=== PATIENT | male | born 1995 | race American Indian/Alaskan Native ===

== ENCOUNTER 2016-12-23 06:01 | Inpatient (IN) | payer MEDICAID ==
[2016-12-23 06:58] LABS: Basophils % (Auto) 0.3 % (0.0-1.8); Eosinophils % (Auto) 5.5 % (0.0-4.3); Hematocrit 42.7 % (35.5-45.6); Hemoglobin 14.2 gm/dl (11.8-15.2); Mean Corpuscular HGB Conc 33 % (32-34); Mean Corpuscular Hemoglobin 29 pg (28-32); Mean Corpuscular Volume 87 fl (84-94); Platelet Count 170 K/mm3 (140-440); Red Blood Count 4.93 M/mm3 (3.65-5.03); Red Cell Distribution Width 13.8 % (13.2-15.2); White Blood Count 6.9 K/mm3 (4.5-11.0)
[2016-12-23 07:14] LABS: Anion Gap 19 mmol/L; Blood Urea Nitrogen 18 mg/dL (9-20); Calcium 8.9 mg/dL (8.4-10.2); Carbon Dioxide 26 mmol/L (22-30); Chloride 97.7 mmol/L (98-107); Glucose 96 mg/dL (75-100); Potassium 3.9 mmol/L (3.6-5.0); Sodium 139 mmol/L (137-145)
--- NOTE | 2016-12-23 09:52 | Emergency Department Report ---
HPI - General Chief Complaint: Chest Pain Time Seen by Provider: 12/23/16 09:29 - HPI HPI: Room 4 The patient is a 21-year-old male presenting with a chief complaint of chest pain. The patient states approximately one week ago began to feel "sick" which includes dizziness nausea vomiting and "seen spots" in his visual field. The patient states the next day he awakened diaphoretic and noticed his appetite was decreased. Patient admits episodes of nausea and vomiting with a very small amount of blood. 2 days ago the patient admits to subjective fever that has persisted throughout yesterday. This morning the patient awakened he noticed a sharp chest pain and a cough that felt as though this heart was "squeezing." The patient admits to fatigue shortness of breath and dyspnea on exertion with 10 feet. The patient states he ran out of his medication ports the end of October 2016. 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 pacemaker replaced by Dr. Bennett at [facility] in 2011 - Family History Family history: no significant - Social History Smoking Status: Never Smoker Substance Use Type: Marijuana - Medications Home Medications: Home Medications Medication Instructions Recorded Confirmed Last Taken Type Sotalol HCl [Sotalol] 80 mg PO BID #60 tablet 07/27/16 Unknown Rx ED Review of Systems ROS: Stated complaint: CHEST PAIN Other details as noted in HPI Comment: All other systems reviewed and negative Constitutional: fever (subjective). denies: chills Eyes: vision change. denies: eye pain, eye discharge ENT: denies: ear pain, throat pain Respiratory: cough, shortness of breath, SOB with exertion Cardiovascular: chest pain, dyspnea on exertion Endocrine: no symptoms reported Gastrointestinal: nausea, vomiting, hematemesis Genitourinary: denies: urgency, dysuria Musculoskeletal: denies: back pain, joint swelling, arthralgia Skin: denies: rash, lesions Neurological: denies: headache, weakness, paresthesias Psychiatric: denies: anxiety, depression Hematological/Lymphatic: denies: easy bleeding, easy bruising Physical Exam - Physical Exam Vital Signs: Vital Signs 12/23/16 06:17 Temperature 97.6 F Pulse Rate 70 Respiratory 20 Rate Blood Pressure 117/79 O2 Sat by Pulse 100 Oximetry Physical Exam: GENERAL: The patient is well-developed well-nourished male lying on stretcher not appear to be in acute distress. [] HEENT: Normocephalic. Atraumatic. Extraocular motions are intact. Patient has moist mucous membranes. NECK: Supple. Trachea midline CHEST/LUNGS: Clear to auscultation. There is no respiratory distress noted. HEART/CARDIOVASCULAR: Regular. There is no tachycardia. There is no gallop rub or murmur. ABDOMEN: Abdomen is soft, nontender. Patient has normal bowel sounds. There is no abdominal distention. SKIN: There is no rash. There is no edema. There is no diaphoresis. NEURO: The patient is awake, alert, and oriented. The patient is cooperative. The patient has normal speech MUSCULOSKELETAL: There is no evidence of acute injury. ED Course Vital Signs 12/23/16 06:17 Temperature 97.6 F Pulse Rate 70 Respiratory 20 Rate Blood Pressure 117/79 O2 Sat by Pulse 100 Oximetry ED Medical Decision Making - Lab Data Result diagrams: 12/23/16 06:35 12/23/16 06:35 Laboratory Tests 12/23/16 12/23/16 12/23/16 06:35 06:35 09:15 WBC 6.9 RBC 4.93 Hgb 14.2 Hct 42.7 MCV 87 MCH 29 MCHC 33 RDW 13.8 Plt Count 170 Lymph % (Auto) 14.3 Gentry % (Auto) 10.6 H Eos % (Auto) 5.5 H Baso % (Auto) 0.3 Lymph # 1.0 L Gentry # 0.7 Eos # 0.4 Baso # 0.0 Seg Neutrophils % 69.3 Seg Neutrophils # 4.8 Sodium 139 Potassium 3.9 Chloride 97.7 L Carbon Dioxide 26 Anion Gap 19 BUN 18 Creatinine 0.8 Estimated GFR > 60 BUN/Creatinine Ratio 22.50 Glucose 96 Calcium 8.9 Troponin T < 0.010 < 0.010 - EKG Data -: EKG Interpreted by Me Rate: normal - EKG Data Interpretation: unchanged when compared t (07/27/2016), other (atrial pacemaker) - Radiology Data Radiology results: image reviewed (chest x-ray) interpreted by me: Chest x-ray-no focal infiltrates, no pneumothorax. Pacemaker in place - Differential Diagnosis ACS, dysrhythmia, pneumonia, pericarditis, CHF exacerbation Critical care attestation.: If time is entered above; I have spent that time in minutes in the direct care of this critically ill patient, excluding procedure time. ED Disposition Clinical Impression: History of cardiac anomaly, Shortness of breath, Chest pain, History of sick sinus syndrome, Chronic systolic heart failure Disposition: OP ADMITTED IP TO THIS HOSP Is pt being admited?: Yes Does the pt Need Aspirin: Yes Condition: Fair Instructions: Chest Pain (ED) Referrals: PRIMARY CARE, [Primary Care Provider] - 3-5 Days Time of Disposition: 10:14 (hospitalist paged)
--- NOTE | 2016-12-23 10:16 | XRay Report ---
PORTABLE CHEST INDICATION: Chest pain. COMPARISON: 07/23/2016 FINDINGS: Portable, frontal chest radiograph demonstrates stable cardiomediastinal silhouette. No pleural effusions or CHF, though lung markings centrally somewhat more prominent. Left-sided pacemaker again noted with dual-chamber leads, though another leads projecting near the left fourth rib again appearing discontinuous/interrupted. Intact bones. CONCLUSION: Slight pulmonary vascular congestion centrally questioned versus technical with few other findings, as above. Please correlate. Thank you for the opportunity to participate in this patient's care.
--- NOTE | 2016-12-23 10:53 | Admit Criteria Form ---
Admission Criteria Documentation: CARDIOLOGY GRG Clinical Indications for Admission to Inpatient Care ( Place 'X' for any and all applicable criteria): Hospital admission is needed for appropriate care of the patient because of ANY ONE of the following (1): [ ] I. Hemodynamic instability as indicated by ALL of the following (1)(2)(3) (4)(5) [ ]a) Vital signs or other findings not as expected for chronic patient condition or baseline [ ]b) Instability indicated by ANY ONE of the following: [ ]i) Hypotension [ ]ii) Symptomatic Tachycardia unresponsive to treatment ( e.g., analgesia, fluids, sedation as indicated) [ ]iii) Inadequate perfusion indicated by ANY ONE of the following: [ ] 1) Lactic acidosis (> 2 mmol/L) [ ] 2) New abnormal capillary refill (> 3 seconds) [ ] 3) Reduced urine output [ ] 4) New altered mental status [ ]iv) Orthostatic vital sign changes unresponsive to treatment (e.g., fluids) [ ]v) IV inotropic or vasopressor medication required to maintain adequate blood pressure or perfusion [ ] II. Severe heart failure as indicated by ANY ONE of the following(17)(18) [ ]a) Respiratory distress [ ]b) Hypotension [ ]c) Anasarca (refractory to outpatient therapy) [ ]d) Cardiac arrhythmias of immediate concern [ ]e) Myocardial ischemia [ ] III. Cardiac arrhythmias or findings of immediate concern indicated by ANY ONE of the following (19)(20): [ ] a) Heart rhythms that are inherently dangerous or unstable indicated by ANY ONE of the following (21)(22)(23): [ ] i) Resuscitated ventricular fibrillation or cardiac arrest [ ] ii) Ventricular escape rhythm [ ] iii) Sustained ventricular tachycardia (30 seconds or more of ventricular rhythm at greater than 100 beats per minute) [ ] iv) Nonsustained ventricular tachycardia and ANY ONE of the following: [ ] 1) Suspected cardiac ischemia as cause or consequence of ventricular tachycardia [ ] 2) In setting of acute myocarditis [ ] b) Unstable cardiac conduction defects indicated by ANY ONE of the following(23)(24)(25) [ ] i) Type II second-degree atrioventricular block [ ]ii) Third-degree atrioventricular block [ ]iii) New-onset left bundle branch block with suspected myocardial ischemia [ ]c) Any heart rhythm and ANY ONE of the following (21)(22)(26)(27) (28) [ ] i) Continuous long-term ECG monitoring needed (e.g., initiation of drug requiring monitoring for more than 24 hours) [ ] ii) Patient has automatic implanted cardioverter defibrillator that is repeatedly firing, malfunctioning, or in need of immediate adjustment of settings beyond the scope of ambulatory or observation care [ ]d) Heart rhythms of concern due to ANY ONE of the following: [ ] i) Hypotension [ ] ii) Respiratory distress [ ] iii) Association with other significant symptoms (e.g., bradycardia with syncope or ongoing dizziness, supraventricular tachycardia with chest pain (14)(15)(17) [ ] IV. Monitoring for cardiac contusion beyond the scope of observation care needed [A](30)(31)(32) [ ] V. Surgical or device complication (e.g., valve replacement complication , pacemaker dysfunction) (35)(41)(44)(45)(46) [ ] . Inpatient palliative care needed. [B](49) Also use Inpatient Palliative Care Criteria [ ] VII. Nonbacterial thrombotic (marantic) endocarditis (36)(43)(47)(48) [ X] VIII. Cardiology condition, symptom, or finding for which emergency and observation care has failed or are not considered appropriate. [ ] IX. Acute valvular disease requiring inpatient as indicated by ANY ONE of the following (41) [ ]a) Acute valvular regurgitation (42) [ ]b) Noninfectious valvulitis (43) [ ]c) Obstructive valve thrombosis [ ]d) Paravalvular leak [ ]e) Other significant valvular disorder remaining after emergency or observation level of care (as appropriate) [ ]X. Pericardial disease requiring inpatient treatment as indicated by ANY ONE of the following (33)(34)(35)(36)(37) [ ]a) Suspected tamponade (38)(39)(40) [ ]b) Hemopericardium [ ]c) Other significant pericardial disorder remaining after emergency or observation level of care (as appropriate) [ ] XI. Cardiac ischemia beyond scope of emergency and observation care. [ ] XII. Hypertension requiring inpatient treatment as indicated by ANY ONE of the following (6)(7)(8) [ ]a) SBP greater than 220 mm Hg or DBP greater than 120 mmHg despite treatment [ ]b) SBP greater than 140 mm Hg or DBP greater than 100 mm Hg with evidence of acute end organ damage as indicated by ANY ONE of the following [ ] i) Altered mental status [ ] ii) Acute renal failure as indicated by new onset of ANY ONE of the following (9)(10)(11)(12)(13) [ ]1) 3-fold rise in serum creatinine from baseline [ ]2) Serum creatinine greater than 4 mg/dL ( 354 micromoles/L) with acute rise greater than 0.5 mg/dL (44.2 micromoles/L) [ ]3) Reduction of more than 75% in estimated glomerular filtration rate from baseline [ ]4) Estimated glomerular filtration rate less than 35 mL/min/1.73m2 (0.59 mL/sec/1.73m2) in child up to 18 years of age [ ]5) Cessation of urine output indicated by ALL of the following [ ]A. Adequate volume status [ ]B. Inadequate urine output as indicated by ANY ONE of the following [ ]a. Urine output less than 0.3 mL/kg/hr for 24 hours [ ]b. Anuria (urine output less than 0.1 mL/kg/hr) for 12 hours [ ] iii) Aortic dissection [ ] iv) Myocardial Ischemia [ ] v) Left ventricular heart failure [ ]vi) Retinal Hemorrhage [ ]vii) Other significant finding [ ]c) Hypertension in child requiring inpatient treatment as indicated by ALL of the following(14)(15)(16) [ ] i) Outpatient treatment not effective, not available, or not appropriate [ ]ii) SBP or DBP greater than 95th percentile for age [ ]iii) Evidence of acute end organ damage as indicated by ANY ONE of the following [ ]1) Altered mental status [ ]2) Acute renal failure as indicated by new onset of ANY ONE of the following(9)(10)(11)(12)(13) [ ]A. 3-fold rise in serum creatinine from baseline [ ]B. Serum creatinine greater than 4 mg/dL (354 micromoles/L) with acute rise greater than 0.5 mg/dL (44.2 micromoles/L) [ ]C. Reduction of more than 75% in estimated glomerular filtration rate from baseline [ ]D. Estimated glomerular filtration rate less than 35 mL/min/1.73m2 (0.59 mL/sec/1.73m2) in child up to 18 years of age [ ]E. Cessation of urine output indicated by ALL of the following [ ]a. Adequate volume status [ ]b. Inadequate urine output as indicated by ANY ONE of the following [ ]i) Urine output less than 0.3 mL/kg/hr for 24 hours [ ]ii) Anuria ( urine output less than 0.1 mL/kg/hr) for 12 hours [ ]3) Severe headache [ ]4) Visual disturbance [ ]5) Retinal hemorrhage [ ]6) Other significant finding [ ]XIII. Complications of transplanted heart indicated by ANY ONE of the following(61): [ ]a) Acute graft rejection requiring inpatient management (eg, intravenous immunosuppression)(62)(63) [ ]b) Acute graft heart failure indicated by ANY ONE of the following(64): [ ]i) Hemodynamic instability [ ]ii) Cardiac arrhythmias of immediate concern [ ]iii) Pulmonary edema that is very severe (eg, mechanical ventilation needed, imminent or likely, need for 100% oxygen to keep oxygen saturation above 90%) [ ]iv) Pulmonary edema that is persistent as indicated by ALL of the following: [ ]1) New need for oxygen therapy to keep oxygen saturation above 90% (or increased FiO2 need from baseline) [ ]2) Has not improved sufficiently with emergency department or observation care IV diuretics or other heart failure treatments[E] [ ]v) Altered mental status that is severe or persistent [ ]vi) Increased creatinine (new on laboratory test) with reduction of more than 50% in estimated glomerular filtration rate from baseline [ ]vii) Progressively (ongoing) rising creatinine (known from past laboratory test) with reduction of more than 25% in estimated glomerular filtration rate from baseline [ ]viii) Acute renal failure [ ]ix) Acute peripheral ischemia (eg, examination shows pulseless, cool, mottled, or cyanotic extremity) [ ]x) Pulmonary artery catheter monitoring needed [ ]xi) Other sign or symptom of heart failure requiring inpatient treatment (ie, too severe or not responsive to outpatient and observation care treatment) [ ]c) Infection requiring inpatient management (eg, Hemodynamic instability, need for intravenous antimicrobial treatment)(66)(67)(68)(69)(70) [ ]d) Cardiac allograft vasculopathy requiring inpatient management ( eg evidence of cardiac ischemia)(71) [ ]e) Other complication of transplanted heart (eg, stroke, severe pulmonary hypertension, severe valvular dysfunction) requiring inpatient management(72) The original [facility] [employer] content created by [facility] has been revised. The portions of the content which have been revised are identified through the use of italic text or in bold, and [facility] has neither reviewed nor approved the modified material. All other unmodified content is copyright [facility] [employer]. Please see references footnoted in the original [facility] [employer] edition 2016 Admission Criteria Met: Yes
--- NOTE | 2016-12-23 12:25 | History and Physical Report ---
History of Present Illness Date of examination: 12/23/16 Date of admission: 12/23/16 10:16 History of present illness: The patient is a 21-year-old male presenting with a chief complaint of chest pain. The patient states approximately one week ago began to feel "sick" which includes dizziness nausea vomiting and "seen spots" in his visual field. The patient states the next day he awakened diaphoretic and noticed his appetite was decreased. Patient admits episodes of nausea and vomiting with a very small amount of blood. 2 days ago the patient admits to subjective fever that has persisted throughout yesterday. This morning the patient awakened he noticed a sharp chest pain and a cough that felt as though this heart was "squeezing." The patient admits to fatigue shortness of breath and dyspnea on exertion with 10 feet. The patient states he ran out of his medication ports the end of October 2016. Past History Past Medical History: atrial fib, other (ASD) Medications and Allergies Allergies Allergy/AdvReac Type Severity Reaction Status Date / Time No Known Allergies Allergy Verified 10/29/13 00:20 Home Medications Medication Instructions Recorded Confirmed Last Taken Type Sotalol HCl [Sotalol] 80 mg PO BID #60 tablet 07/27/16 12/23/16 Unknown Rx Review of Systems Cardiovascular: chest pain, shortness of breath Exam - Constitutional Vitals: Temp Pulse Resp BP Pulse Ox 98.5 F 67 16 111/77 98 12/23/16 09:55 12/23/16 09:55 12/23/16 09:55 12/23/16 09:55 12/23/16 09:55 General appearance: Present: no acute distress - EENT Eyes: Present: PERRL, EOM intact ENT: hearing intact, clear oral mucosa - Neck Neck: Present: supple, normal ROM - Respiratory Respiratory effort: normal Respiratory: bilateral: CTA - Cardiovascular Rhythm: regular Heart Sounds: Present: S1 & S2 - Abdominal General gastrointestinal: Present: soft, non-tender, non-distended, normal bowel sounds - Musculoskeletal Musculoskeletal: strength equal bilaterally - Psychiatric Psychiatric: appropriate mood/affect, intact judgment & insight - Neurologic Neurologic: CNII-XII intact, moves all extremities Results - Labs CBC & Chem 7: 12/23/16 06:35 12/23/16 06:35 Labs: Laboratory Last Values WBC 6.9 K/mm3 (4.5-11.0) 12/23/16 06:35 RBC 4.93 M/mm3 (3.65-5.03) 12/23/16 06:35 Hgb 14.2 gm/dl (11.8-15.2) 12/23/16 06:35 Hct 42.7 % (35.5-45.6) 12/23/16 06:35 MCV 87 fl (84-94) 12/23/16 06:35 MCH 29 pg (28-32) 12/23/16 06:35 MCHC 33 % (32-34) 12/23/16 06:35 RDW 13.8 % (13.2-15.2) 12/23/16 06:35 Plt Count 170 K/mm3 (140-440) 12/23/16 06:35 Lymph % (Auto) 14.3 % (13.4-35.0) 12/23/16 06:35 Irion % (Auto) 10.6 % (0.0-7.3) H 12/23/16 06:35 Eos % (Auto) 5.5 % (0.0-4.3) H 12/23/16 06:35 Baso % (Auto) 0.3 % (0.0-1.8) 12/23/16 06:35 Lymph # 1.0 K/mm3 (1.2-5.4) L 12/23/16 06:35 Irion # 0.7 K/mm3 (0.0-0.8) 12/23/16 06:35 Eos # 0.4 K/mm3 (0.0-0.4) 12/23/16 06:35 Baso # 0.0 K/mm3 (0.0-0.1) 12/23/16 06:35 Seg Neutrophils % 69.3 % (40.0-70.0) 12/23/16 06:35 Seg Neutrophils # 4.8 K/mm3 (1.8-7.7) 12/23/16 06:35 Sodium 139 mmol/L (137-145) 12/23/16 06:35 Potassium 3.9 mmol/L (3.6-5.0) 12/23/16 06:35 Chloride 97.7 mmol/L (98-107) L 12/23/16 06:35 Carbon Dioxide 26 mmol/L (22-30) 12/23/16 06:35 Anion Gap 19 mmol/L 12/23/16 06:35 BUN 18 mg/dL (9-20) 12/23/16 06:35 Creatinine 0.8 mg/dL (0.8-1.5) 12/23/16 06:35 Estimated GFR > 60 ml/min 12/23/16 06:35 BUN/Creatinine Ratio 22.50 % 12/23/16 06:35 Glucose 96 mg/dL (75-100) 12/23/16 06:35 Calcium 8.9 mg/dL (8.4-10.2) 12/23/16 06:35 Troponin T < 0.010 ng/mL (0.00-0.029) 12/23/16 09:15 Assessment and Plan - Patient Problems (1) History of atrial septal defect Current Visit: Yes Status: Acute Plan to address problem: Patient has an extensive cardiac history with repair of atrial septal defect. We'll get cardiology evaluation follow troponins. 2-D echo (2) History of atrial flutter Current Visit: Yes Status: Acute Plan to address problem: Patient currently in sinus rhythm (3) Chest pain Current Visit: Yes Status: Acute Qualifiers: Chest pain type: C Plan to address problem: Will get full cardiac workup admit patient to telemetry. Troponin. Echo. Cardiology consult
[2016-12-23] MEDS: HALFPRIN EC PO SCH (13:37)
[2016-12-23] MEDS: BETAPACE PO SCH ×2 (13:37→21:11)
[2016-12-23] MEDS: NACL 0.9% 1000 ML 1,000 ML IV SCH (13:39)
--- NOTE | 2016-12-23 15:07 | Consultation ---
History of Present Illness Consult date: 12/23/16 Consult reason: chest pain, other (ASD) History of present illness: Patient is a 21yr old male who has a history of partial anomalous venous return , ASD and PDA s/p repair at age 3 in [place]. At age 5, he required a PPM ( medtronic adapta) for sick sinus syndrome (generator exchanged 2010). He has a history of atrial flutter and atrial tachycardia, noncompliant with sotalol and eliquis therapy. He has a history of a four-chamber cardiomyopathy, with left ventricular ejection fraction 30%. He also has a history noncompliance with outpatient cardiac follow ups. The patient is in the hospital at this time with symptoms of productive cough, diaphoresis and fever. Following multiple coughing episodes, he also developed atypical, musculoskeletal type chest pain. A 12-lead EKG shows an atrial paced rhythm. Underlying sinus rhythm. Cardiac consultation was requested for chest pain assessment. Past History Past Medical History: atrial fib, other (ASD) Medications and Allergies Allergies Allergy/AdvReac Type Severity Reaction Status Date / Time No Known Allergies Allergy Verified 10/29/13 00:20 Home Medications Medication Instructions Recorded Confirmed Last Taken Type Sotalol HCl [Sotalol] 80 mg PO BID #60 tablet 07/27/16 12/23/16 Unknown Rx Active Meds: Active Medications Aspirin (Halfprin Ec) 81 mg PO QDAY [facility] Last Admin: 12/23/16 13:37 Dose: 81 mg Sodium Chloride (Nacl 0.9% 1000 Ml) 1,000 mls @ 100 mls/hr IV DIRECT [facility] Last Admin: 12/23/16 13:39 Dose: 100 mls/hr Sotalol HCl (Betapace) 80 mg PO BID [facility] Last Admin: 12/23/16 13:37 Dose: 80 mg Physical Examination Vital Signs Temp Pulse Resp BP Pulse Ox 97.6 F 70 20 117/79 100 12/23/16 06:17 12/23/16 06:17 12/23/16 06:17 12/23/16 06:17 12/23/16 06:17 General appearance: no acute distress HEENT: Positive: PERRL Neck: Positive: trachea midline Cardiac: Positive: Reg Rate and Rhythm Lungs: Positive: Decreased Breath Sounds Neuro: Positive: Grossly Intact Extremities: Absent: edema Results 12/23/16 06:35 12/23/16 06:35 Assessment and Plan Atypical, musculoskeletal type chest pain Paroxysmal Atrial tachycardia/flutter sotalol resumed for suppression 4 chamber Dilated Cardiomyopathy EF 35-40% on echo 06/2016 SSS s/p PPM (generator exchange 2010) Hx of partial anomalous venous return, ASD and PDA s/p repair at age 3 in [place] Hx of pulmonary embolus Non compliance with meds and outpatient follow ups
[2016-12-24] MEDS: NACL 0.9% 1000 ML 1,000 ML IV SCH (02:25)
[2016-12-24 03:46] LABS: Basophils % (Auto) 0.5 % (0.0-1.8); Eosinophils % (Auto) 5.9 % (0.0-4.3); Hemoglobin 13.8 gm/dl (11.8-15.2); Mean Corpuscular HGB Conc 33 % (32-34); Mean Corpuscular Hemoglobin 29 pg (28-32); Mean Corpuscular Volume 87 fl (84-94); Platelet Count 190 K/mm3 (140-440); Red Blood Count 4.81 M/mm3 (3.65-5.03); Red Cell Distribution Width 13.5 % (13.2-15.2); White Blood Count 7.2 K/mm3 (4.5-11.0)
[2016-12-24 04:04] LABS: Alanine Aminotransferase 17 units/L (7-56); Albumin 4.3 g/dL (3.9-5); Albumin/Globulin Ratio 1.3 %; Alkaline Phosphatase 102 units/L (35-129); Anion Gap 18 mmol/L; BUN/Creatinine Ratio 14.44; Bilirubin,Total 0.8 mg/dL (0.1-1.2); Blood Urea Nitrogen 13 mg/dL (9-20); Calcium 9.1 mg/dL (8.4-10.2); Carbon Dioxide 24 mmol/L (22-30); Glucose 106 mg/dL (75-100); Potassium 4.4 mmol/L (3.6-5.0); Sodium 141 mmol/L (137-145); Total Protein 7.5 g/dL (6.3-8.2)
--- NOTE | 2016-12-24 10:56 | Progress Note ---
Assessment and Plan Assessment and plan: 1. Atypical, musculoskeletal type chest pain. Continue supportive care. 2. Paroxysmal Atrial tachycardia/flutter. Sotalol resumed for suppression per cardiology 3. 4 chamber Dilated Cardiomyopathy. EF 35-40% on echo 06/2016. Echo today showing a small mobile echogenic density on the pacemaker leads 4. SSS s/p PPM (generator exchange 2010) 5. Hx of partial anomalous venous return, ASD and PDA s/p repair at age 3 in [place] 6. Hx of pulmonary embolus 7. Medical Non compliance. 8. SIRS/fever symptom complex--rule out endocarditis. Await blood cultures. History Interval history: Patient is a 21yr old male who has a history of partial anomalous venous return , ASD and PDA s/p repair at age 3 in [place]. At age 5, he required a PPM ( medtronic adapta) for sick sinus syndrome (generator exchanged 2010). He has a history of atrial flutter and atrial tachycardia, noncompliant with sotalol and eliquis therapy. He has a history of a four-chamber cardiomyopathy, with left ventricular ejection fraction 30%. He also has a history noncompliance with outpatient cardiac follow ups. The patient was admitted with symptoms of productive cough, diaphoresis and fever. Following multiple coughing episodes, he also developed atypical, musculoskeletal type chest pain. Patient currently denies any pain. Hospitalist Physical - Constitutional Vitals: Temp Pulse Resp BP Pulse Ox 97.7 F 73 18 119/81 100 12/24/16 04:00 12/24/16 04:00 12/24/16 04:00 12/24/16 04:00 12/24/16 09:51 General appearance: Present: no acute distress - EENT Eyes: Present: PERRL, EOM intact ENT: hearing intact, clear oral mucosa, dentition normal - Neck Neck: Present: supple, normal ROM - Respiratory Respiratory effort: normal Respiratory: bilateral: CTA - Cardiovascular Rhythm: regular Heart Sounds: Present: S1 & S2. Absent: gallop, rub - Extremities Extremities: no ischemia, No edema, Full ROM - Abdominal General gastrointestinal: soft, non-tender, non-distended, normal bowel sounds - Integumentary Integumentary: Present: clear, warm, dry - Neurologic Neurologic: CNII-XII intact, moves all extremities Results - Labs CBC & Chem 7: 12/24/16 03:15 12/24/16 03:15 Labs: Laboratory Last Values WBC 7.2 K/mm3 (4.5-11.0) 12/24/16 03:15 RBC 4.81 M/mm3 (3.65-5.03) 12/24/16 03:15 Hgb 13.8 gm/dl (11.8-15.2) 12/24/16 03:15 Hct 42.0 % (35.5-45.6) 12/24/16 03:15 MCV 87 fl (84-94) 12/24/16 03:15 MCH 29 pg (28-32) 12/24/16 03:15 MCHC 33 % (32-34) 12/24/16 03:15 RDW 13.5 % (13.2-15.2) 12/24/16 03:15 Plt Count 190 K/mm3 (140-440) 12/24/16 03:15 Lymph % (Auto) 27.0 % (13.4-35.0) 12/24/16 03:15 [place] % (Auto) 12.3 % (0.0-7.3) H 12/24/16 03:15 Eos % (Auto) 5.9 % (0.0-4.3) H 12/24/16 03:15 Baso % (Auto) 0.5 % (0.0-1.8) 12/24/16 03:15 Lymph # 2.0 K/mm3 (1.2-5.4) 12/24/16 03:15 [place] # 0.9 K/mm3 (0.0-0.8) H 12/24/16 03:15 Eos # 0.4 K/mm3 (0.0-0.4) 12/24/16 03:15 Baso # 0.0 K/mm3 (0.0-0.1) 12/24/16 03:15 Seg Neutrophils % 54.3 % (40.0-70.0) 12/24/16 03:15 Seg Neutrophils # 3.9 K/mm3 (1.8-7.7) 12/24/16 03:15 Sodium 141 mmol/L (137-145) 12/24/16 03:15 Potassium 4.4 mmol/L (3.6-5.0) 12/24/16 03:15 Chloride 103.0 mmol/L (98-107) 12/24/16 03:15 Carbon Dioxide 24 mmol/L (22-30) 12/24/16 03:15 Anion Gap 18 mmol/L 12/24/16 03:15 BUN 13 mg/dL (9-20) 12/24/16 03:15 Creatinine 0.9 mg/dL (0.8-1.5) 12/24/16 03:15 Estimated GFR > 60 ml/min 12/24/16 03:15 BUN/Creatinine Ratio 14.44 % 12/24/16 03:15 Glucose 106 mg/dL (75-100) H 12/24/16 03:15 Calcium 9.1 mg/dL (8.4-10.2) 12/24/16 03:15 Total Bilirubin 0.8 mg/dL (0.1-1.2) 12/24/16 03:15 AST 19 units/L (5-40) 12/24/16 03:15 ALT 17 units/L (7-56) 12/24/16 03:15 Alkaline Phosphatase 102 units/L (35-129) 12/24/16 03:15 Troponin T < 0.010 ng/mL (0.00-0.029) 12/23/16 17:01 Total Protein 7.5 g/dL (6.3-8.2) 12/24/16 03:15 Albumin 4.3 g/dL (3.9-5) 12/24/16 03:15 Albumin/Globulin Ratio 1.3 % 12/24/16 03:15
[2016-12-24] MEDS: HALFPRIN EC PO SCH (11:13)
[2016-12-24] MEDS: BETAPACE PO SCH ×2 (11:13→21:55)
--- NOTE | 2016-12-24 11:55 | Progress Note ---
Assessment and Plan Atypical, musculoskeletal type chest pain Paroxysmal Atrial tachycardia/flutter sotalol resumed for suppression H/O Dilated Cardiomyopathy EF 45-50% on repeat echo SSS s/p PPM (generator exchange 2011) Subjective fevers and mobile density noted on PPM lead (unclear if thrombin sheath or vegetation) Hx of partial anomalous venous return, ASD and PDA s/p repair at age 3 in [place] Hx of pulmonary embolus Non compliance with meds and outpatient follow ups Recommend: F/U on blood cultures - no objective signs of systemic infection thus far. Subjective Date of service: 12/24/16 Interval history: No acute events. He feels well. Objective Vital Signs Temp Pulse Pulse Resp BP BP Pulse Ox 12/24/16 09:51 100 12/24/16 04:00 97.7 F 73 18 119/81 98 12/24/16 00:00 98.1 F 58 L 18 112/73 97 12/23/16 21:09 97 12/23/16 20:52 60 12/23/16 20:24 98.1 F 58 L 18 138/93 100 12/23/16 20:08 20 12/23/16 15:30 98.2 F 57 L 20 112/70 98 12/23/16 14:03 97.5 F L 62 20 112/67 98 12/23/16 12:52 67 12/23/16 12:00 76 16 123/74 97 - Physical Examination HEENT: Positive: PERRL Neck: Positive: trachea midline Cardiac: Positive: Reg Rate and Rhythm, Systolic Murmur Lungs: Positive: clear to auscultation Neuro: Positive: Grossly Intact Abdomen: Positive: Soft, Active Bowel Sounds Extremities: Absent: edema - Labs and Meds Cardiac Enzymes 12/24/16 Range/Units 03:15 AST 19 (5-40) units/L CBC 12/24/16 Range/Units 03:15 WBC 7.2 (4.5-11.0) K/mm3 RBC 4.81 (3.65-5.03) M/mm3 Hgb 13.8 (11.8-15.2) gm/dl Hct 42.0 (35.5-45.6) % Plt Count 190 (140-440) K/mm3 Lymph # 2.0 (1.2-5.4) K/mm3 [place] # 0.9 H (0.0-0.8) K/mm3 Eos # 0.4 (0.0-0.4) K/mm3 Baso # 0.0 (0.0-0.1) K/mm3 Comprehensive Metabolic Panel 12/24/16 Range/Units 03:15 Sodium 141 (137-145) mmol/L Potassium 4.4 (3.6-5.0) mmol/L Chloride 103.0 (98-107) mmol/L Carbon Dioxide 24 (22-30) mmol/L BUN 13 (9-20) mg/dL Creatinine 0.9 (0.8-1.5) mg/dL Glucose 106 H (75-100) mg/dL Calcium 9.1 (8.4-10.2) mg/dL AST 19 (5-40) units/L ALT 17 (7-56) units/L Alkaline Phosphatase 102 (35-129) units/L Total Protein 7.5 (6.3-8.2) g/dL Albumin 4.3 (3.9-5) g/dL
[2016-12-25] MEDS: NACL 0.9% 1000 ML 1,000 ML IV SCH ×3 (02:19→21:57)
[2016-12-25] MEDS: BETAPACE PO SCH ×2 (11:13→21:57)
[2016-12-25] MEDS: HALFPRIN EC PO SCH (11:13)
--- NOTE | 2016-12-25 12:18 | Progress Note ---
Assessment and Plan Atypical, musculoskeletal type chest pain Paroxysmal Atrial tachycardia/flutter sotalol resumed for suppression H/O Dilated Cardiomyopathy EF 45-50% on repeat echo SSS s/p PPM (generator exchange 2011) Subjective fevers and mobile density noted on PPM lead (unclear if thrombin sheath or vegetation) Hx of partial anomalous venous return, ASD and PDA s/p repair at age 3 in [place] Hx of pulmonary embolus Non compliance with meds and outpatient follow ups Recommend: F/U on blood cultures - no objective signs of systemic infection thus far. Subjective Date of service: 12/25/16 Interval history: No acute events. He feels well. Objective Vital Signs Temp Pulse Pulse Resp BP BP Pulse Ox 12/25/16 11:17 20 12/25/16 10:46 50 L 12/25/16 07:20 97.8 F 52 L 20 99/55 97 12/25/16 04:00 98.3 F 69 18 98/53 100 12/25/16 00:00 98.1 F 72 18 109/74 98 12/24/16 21:55 121/71 12/24/16 21:06 51 L 12/24/16 20:00 98.4 F 63 18 121/71 97 12/24/16 18:00 98.2 F 73 20 116/66 99 12/24/16 15:22 98.0 F 71 20 114/61 100 - Physical Examination HEENT: Positive: PERRL Neck: Positive: trachea midline Lungs: Positive: clear to auscultation Neuro: Positive: Grossly Intact Abdomen: Positive: Soft, Active Bowel Sounds Extremities: Absent: edema
--- NOTE | 2016-12-25 13:38 | Progress Note ---
Assessment and Plan Assessment and plan: 1. Atypical, musculoskeletal type chest pain. Continue supportive care. 2. Paroxysmal Atrial tachycardia/flutter. Sotalol resumed for suppression per cardiology 3. 4 chamber Dilated Cardiomyopathy. EF 35-40% on echo 06/2016. Echo today showing a small mobile echogenic density on the pacemaker leads 4. SSS s/p PPM (generator exchange 2010) 5. Hx of partial anomalous venous return, ASD and PDA s/p repair at age 3 in [place] 6. Hx of pulmonary embolus 7. Medical Non compliance. 8. SIRS/fever symptom complex--rule out endocarditis. Await blood cultures. 9. Sinusitis. Patient complaining of maxillary and frontal pressure/pain. Start by mouth antibiotics. History Interval history: Patient currently complaining of maxillary and frontal sinus pressure and pain. No other complaints. Hospitalist Physical - Constitutional Vitals: Temp Pulse Resp BP Pulse Ox 98.3 F 54 L 20 100/78 98 12/25/16 12:39 12/25/16 12:39 12/25/16 12:39 12/25/16 12:39 12/25/16 12:39 General appearance: Present: no acute distress - EENT Eyes: Present: PERRL, EOM intact ENT: hearing intact, clear oral mucosa, dentition normal, other (frontal and maxillary sinus pain to palpation) - Neck Neck: Present: supple, normal ROM - Respiratory Respiratory effort: normal Respiratory: bilateral: CTA - Cardiovascular Rhythm: regular Heart Sounds: Present: S1 & S2. Absent: gallop, rub - Extremities Extremities: no ischemia, No edema, Full ROM - Abdominal General gastrointestinal: soft, non-tender, non-distended, normal bowel sounds - Integumentary Integumentary: Present: clear, warm, dry - Neurologic Neurologic: CNII-XII intact, moves all extremities Results - Labs CBC & Chem 7: 12/24/16 03:15 12/24/16 03:15 Labs: Laboratory Last Values WBC 7.2 K/mm3 (4.5-11.0) 12/24/16 03:15 RBC 4.81 M/mm3 (3.65-5.03) 12/24/16 03:15 Hgb 13.8 gm/dl (11.8-15.2) 12/24/16 03:15 Hct 42.0 % (35.5-45.6) 12/24/16 03:15 MCV 87 fl (84-94) 12/24/16 03:15 MCH 29 pg (28-32) 12/24/16 03:15 MCHC 33 % (32-34) 12/24/16 03:15 RDW 13.5 % (13.2-15.2) 12/24/16 03:15 Plt Count 190 K/mm3 (140-440) 12/24/16 03:15 Lymph % (Auto) 27.0 % (13.4-35.0) 12/24/16 03:15 [place] % (Auto) 12.3 % (0.0-7.3) H 12/24/16 03:15 Eos % (Auto) 5.9 % (0.0-4.3) H 12/24/16 03:15 Baso % (Auto) 0.5 % (0.0-1.8) 12/24/16 03:15 Lymph # 2.0 K/mm3 (1.2-5.4) 12/24/16 03:15 [place] # 0.9 K/mm3 (0.0-0.8) H 12/24/16 03:15 Eos # 0.4 K/mm3 (0.0-0.4) 12/24/16 03:15 Baso # 0.0 K/mm3 (0.0-0.1) 12/24/16 03:15 Seg Neutrophils % 54.3 % (40.0-70.0) 12/24/16 03:15 Seg Neutrophils # 3.9 K/mm3 (1.8-7.7) 12/24/16 03:15 Sodium 141 mmol/L (137-145) 12/24/16 03:15 Potassium 4.4 mmol/L (3.6-5.0) 12/24/16 03:15 Chloride 103.0 mmol/L (98-107) 12/24/16 03:15 Carbon Dioxide 24 mmol/L (22-30) 12/24/16 03:15 Anion Gap 18 mmol/L 12/24/16 03:15 BUN 13 mg/dL (9-20) 12/24/16 03:15 Creatinine 0.9 mg/dL (0.8-1.5) 12/24/16 03:15 Estimated GFR > 60 ml/min 12/24/16 03:15 BUN/Creatinine Ratio 14.44 % 12/24/16 03:15 Glucose 106 mg/dL (75-100) H 12/24/16 03:15 Calcium 9.1 mg/dL (8.4-10.2) 12/24/16 03:15 Total Bilirubin 0.8 mg/dL (0.1-1.2) 12/24/16 03:15 AST 19 units/L (5-40) 12/24/16 03:15 ALT 17 units/L (7-56) 12/24/16 03:15 Alkaline Phosphatase 102 units/L (35-129) 12/24/16 03:15 Troponin T < 0.010 ng/mL (0.00-0.029) 12/23/16 17:01 Total Protein 7.5 g/dL (6.3-8.2) 12/24/16 03:15 Albumin 4.3 g/dL (3.9-5) 12/24/16 03:15 Albumin/Globulin Ratio 1.3 % 12/24/16 03:15
[2016-12-25] MEDS: BACTRIM DS PO SCH (21:57)
[2016-12-26] MEDS: NACL 0.9% 1000 ML 1,000 ML IV SCH (06:26)
--- NOTE | 2016-12-26 09:22 | Progress Note ---
Assessment and Plan Assessment and plan: 1. Atypical chest pain. Continue supportive care. 2. Paroxysmal Atrial tachycardia/flutter. Sotalol resumed for suppression per cardiology 3. 4 chamber Dilated Cardiomyopathy. EF 35-40% on echo 06/2016. Echo showing a small mobile echogenic density on the pacemaker leads. Pt. with subjective fevers and mobile density noted on PPM lead (unclear if thrombin sheath or vegetation) 4. SSS s/p PPM (generator exchange 2010) 5. Hx of partial anomalous venous return, ASD and PDA s/p repair at age 3 in [place] 6. Hx of pulmonary embolus 7. Medical Non compliance. 8. SIRS/fever symptom complex--rule out endocarditis. Await blood cultures, if negative consider d/c 9. Sinusitis. Patient complaining of maxillary and frontal pressure/pain. Bactrim by mouth started. History Interval history: No new issues overnight. Hospitalist Physical - Constitutional Vitals: Temp Pulse Resp BP Pulse Ox 98.7 F 81 20 120/80 96 12/26/16 08:11 12/26/16 08:11 12/26/16 08:11 12/26/16 08:11 12/26/16 08:11 General appearance: Present: no acute distress - EENT Eyes: Present: PERRL, EOM intact ENT: hearing intact, clear oral mucosa, dentition normal - Neck Neck: Present: supple, normal ROM - Respiratory Respiratory effort: normal Respiratory: bilateral: CTA - Cardiovascular Rhythm: regular Heart Sounds: Present: S1 & S2. Absent: gallop, rub - Extremities Extremities: no ischemia, No edema, Full ROM - Abdominal General gastrointestinal: soft, non-tender, non-distended, normal bowel sounds - Integumentary Integumentary: Present: clear, warm, dry - Neurologic Neurologic: CNII-XII intact, moves all extremities Results - Labs CBC & Chem 7: 12/24/16 03:15 12/24/16 03:15 Labs: Laboratory Last Values WBC 7.2 K/mm3 (4.5-11.0) 12/24/16 03:15 RBC 4.81 M/mm3 (3.65-5.03) 12/24/16 03:15 Hgb 13.8 gm/dl (11.8-15.2) 12/24/16 03:15 Hct 42.0 % (35.5-45.6) 12/24/16 03:15 MCV 87 fl (84-94) 12/24/16 03:15 MCH 29 pg (28-32) 12/24/16 03:15 MCHC 33 % (32-34) 12/24/16 03:15 RDW 13.5 % (13.2-15.2) 12/24/16 03:15 Plt Count 190 K/mm3 (140-440) 12/24/16 03:15 Lymph % (Auto) 27.0 % (13.4-35.0) 12/24/16 03:15 [place] % (Auto) 12.3 % (0.0-7.3) H 12/24/16 03:15 Eos % (Auto) 5.9 % (0.0-4.3) H 12/24/16 03:15 Baso % (Auto) 0.5 % (0.0-1.8) 12/24/16 03:15 Lymph # 2.0 K/mm3 (1.2-5.4) 12/24/16 03:15 [place] # 0.9 K/mm3 (0.0-0.8) H 12/24/16 03:15 Eos # 0.4 K/mm3 (0.0-0.4) 12/24/16 03:15 Baso # 0.0 K/mm3 (0.0-0.1) 12/24/16 03:15 Seg Neutrophils % 54.3 % (40.0-70.0) 12/24/16 03:15 Seg Neutrophils # 3.9 K/mm3 (1.8-7.7) 12/24/16 03:15 Sodium 141 mmol/L (137-145) 12/24/16 03:15 Potassium 4.4 mmol/L (3.6-5.0) 12/24/16 03:15 Chloride 103.0 mmol/L (98-107) 12/24/16 03:15 Carbon Dioxide 24 mmol/L (22-30) 12/24/16 03:15 Anion Gap 18 mmol/L 12/24/16 03:15 BUN 13 mg/dL (9-20) 12/24/16 03:15 Creatinine 0.9 mg/dL (0.8-1.5) 12/24/16 03:15 Estimated GFR > 60 ml/min 12/24/16 03:15 BUN/Creatinine Ratio 14.44 % 12/24/16 03:15 Glucose 106 mg/dL (75-100) H 12/24/16 03:15 Calcium 9.1 mg/dL (8.4-10.2) 12/24/16 03:15 Total Bilirubin 0.8 mg/dL (0.1-1.2) 12/24/16 03:15 AST 19 units/L (5-40) 12/24/16 03:15 ALT 17 units/L (7-56) 12/24/16 03:15 Alkaline Phosphatase 102 units/L (35-129) 12/24/16 03:15 Troponin T < 0.010 ng/mL (0.00-0.029) 12/23/16 17:01 Total Protein 7.5 g/dL (6.3-8.2) 12/24/16 03:15 Albumin 4.3 g/dL (3.9-5) 12/24/16 03:15 Albumin/Globulin Ratio 1.3 % 12/24/16 03:15
[2016-12-26] MEDS: BACTRIM DS PO SCH ×2 (09:41→22:55)
[2016-12-26] MEDS: BETAPACE PO SCH ×2 (09:41→22:55)
[2016-12-26] MEDS: HALFPRIN EC PO SCH (09:41)
--- NOTE | 2016-12-26 16:07 | Progress Note ---
Assessment and Plan Atypical, musculoskeletal type chest pain Paroxysmal Atrial tachycardia/flutter sotalol resumed for suppression 4 chamber Dilated Cardiomyopathy EF 35-40% on echo 06/2016 SSS s/p PPM (generator exchange 2010) Hx of partial anomalous venous return, ASD and PDA s/p repair at age 3 in [place] Hx of pulmonary embolus Non compliance with meds and outpatient follow ups Subjective Date of service: 12/26/16 Interval history: Patient has no complaints. Awaits blood culture report. Objective Vital Signs Temp Pulse Pulse Resp BP Pulse Ox 12/26/16 12:00 98.1 F 66 18 109/73 99 12/26/16 09:41 87 12/26/16 08:11 98.7 F 81 20 120/80 96 12/26/16 04:30 60 12/26/16 01:00 99.4 F 51 L 18 102/55 97 12/25/16 22:00 50 L 12/25/16 16:27 98.9 F 87 20 115/70 95 - Physical Examination General: No Apparent Distress HEENT: Positive: PERRL Neck: Positive: trachea midline Cardiac: Positive: Reg Rate and Rhythm Lungs: Positive: Decreased Breath Sounds Neuro: Positive: Grossly Intact Abdomen: Positive: Soft, Active Bowel Sounds Extremities: Absent: edema
[2016-12-27] MEDS: BETAPACE PO SCH ×2 (09:56→22:05)
[2016-12-27] MEDS: BACTRIM DS PO SCH ×2 (09:56→22:05)
[2016-12-27] MEDS: HALFPRIN EC PO SCH (09:56)
--- NOTE | 2016-12-27 14:54 | Progress Note ---
Assessment and Plan Assessment and plan: 1. Atypical chest pain. Continue supportive care. 2. Paroxysmal Atrial tachycardia/flutter. Sotalol resumed for suppression per cardiology 3. Dilated Cardiomyopathy. EF 35-40% on echo 06/2016. Echo showing a small mobile echogenic density on the pacemaker leads. Pt. with subjective fevers and mobile density noted on PPM lead (unclear if thrombin sheath or vegetation) ; to rule out endocarditis. Blood c/s -NGTD; for ANDREZ in the .am as per cardiology 4. SSS s/p PPM (generator exchange 2010) 5. Hx of partial anomalous venous return, ASD and PDA s/p repair at age 3 in [place] 6. Hx of pulmonary embolus 7. Medical Non compliance. 8. Sinusitis. Patient complaining of maxillary and frontal pressure/pain. Bactrim by mouth started. 9. DVT prophylaxis- ambulating;will start lovenox after ANDREZ in the a.m History Interval history: F/u possble infective endocarditis Patient seen at the bedside; no complaints; for ANDREZ tomorrow Hospitalist Physical - Constitutional Vitals: Temp Pulse Resp BP Pulse Ox 98.2 F 55 L 14 97/55 98 12/27/16 13:29 12/27/16 13:29 12/27/16 13:29 12/27/16 13:29 12/27/16 08:00 General appearance: Present: no acute distress, well-nourished - EENT Eyes: Present: PERRL, EOM intact. Absent: scleral icterus, conjunctival injection ENT: hearing intact, clear oral mucosa, no oropharyngeal erythema, no poor dentition - Neck Neck: Present: supple, normal ROM. Absent: enlarged thyroid, masses or JVD - Respiratory Respiratory effort: normal Respiratory: negative: diminished, rales, rhonchi, wheezing - Cardiovascular Rhythm: regular Heart Sounds: Present: S1 & S2. Absent: gallop - Extremities Extremities: no ischemia, pulses intact, pulses symmetrical, No edema, normal temperature, normal color Peripheral Pulses: within normal limits - Abdominal General gastrointestinal: soft, non-tender, non-distended, normal bowel sounds - Integumentary Integumentary: Present: clear - Psychiatric Psychiatric: appropriate mood/affect, intact judgment & insight, cooperative - Neurologic Neurologic: CNII-XII intact, moves all extremities Results - Labs CBC & Chem 7: 12/24/16 03:15 02/25/17 03:15 Labs: Laboratory Last Values WBC 7.2 K/mm3 (4.5-11.0) 12/24/16 03:15 RBC 4.81 M/mm3 (3.65-5.03) 12/24/16 03:15 Hgb 13.8 gm/dl (11.8-15.2) 12/24/16 03:15 Hct 42.0 % (35.5-45.6) 12/24/16 03:15 MCV 87 fl (84-94) 12/24/16 03:15 MCH 29 pg (28-32) 12/24/16 03:15 MCHC 33 % (32-34) 12/24/16 03:15 RDW 13.5 % (13.2-15.2) 12/24/16 03:15 Plt Count 190 K/mm3 (140-440) 12/24/16 03:15 Lymph % (Auto) 27.0 % (13.4-35.0) 12/24/16 03:15 [place] % (Auto) 12.3 % (0.0-7.3) H 12/24/16 03:15 Eos % (Auto) 5.9 % (0.0-4.3) H 12/24/16 03:15 Baso % (Auto) 0.5 % (0.0-1.8) 12/24/16 03:15 Lymph # 2.0 K/mm3 (1.2-5.4) 12/24/16 03:15 [place] # 0.9 K/mm3 (0.0-0.8) H 12/24/16 03:15 Eos # 0.4 K/mm3 (0.0-0.4) 12/24/16 03:15 Baso # 0.0 K/mm3 (0.0-0.1) 12/24/16 03:15 Seg Neutrophils % 54.3 % (40.0-70.0) 12/24/16 03:15 Seg Neutrophils # 3.9 K/mm3 (1.8-7.7) 12/24/16 03:15 Sodium 141 mmol/L (137-145) 12/24/16 03:15 Potassium 4.4 mmol/L (3.6-5.0) 12/24/16 03:15 Chloride 103.0 mmol/L (98-107) 12/24/16 03:15 Carbon Dioxide 24 mmol/L (22-30) 12/24/16 03:15 Anion Gap 18 mmol/L 12/24/16 03:15 BUN 13 mg/dL (9-20) 12/24/16 03:15 Creatinine 0.9 mg/dL (0.8-1.5) 12/24/16 03:15 Estimated GFR > 60 ml/min 12/24/16 03:15 BUN/Creatinine Ratio 14.44 % 12/24/16 03:15 Glucose 106 mg/dL (75-100) H 12/24/16 03:15 Calcium 9.1 mg/dL (8.4-10.2) 12/24/16 03:15 Total Bilirubin 0.8 mg/dL (0.1-1.2) 12/24/16 03:15 AST 19 units/L (5-40) 12/24/16 03:15 ALT 17 units/L (7-56) 12/24/16 03:15 Alkaline Phosphatase 102 units/L (35-129) 12/24/16 03:15 Troponin T < 0.010 ng/mL (0.00-0.029) 12/23/16 17:01 Total Protein 7.5 g/dL (6.3-8.2) 12/24/16 03:15 Albumin 4.3 g/dL (3.9-5) 12/24/16 03:15 Albumin/Globulin Ratio 1.3 % 12/24/16 03:15 Microbiology 12/23/16 20:39 Peripheral/Venous Blood Culture - Preliminary NO GROWTH AFTER 72 HOURS 12/23/16 20:39 Peripheral/Venous Blood Culture - Preliminary NO GROWTH AFTER 72 HOURS
--- NOTE | 2016-12-27 14:56 | Progress Note ---
Assessment and Plan Atypical, musculoskeletal type chest pain Paroxysmal Atrial tachycardia/flutter sotalol resumed for suppression 4 chamber Dilated Cardiomyopathy EF 35-40% on echo 06/2016 SSS s/p PPM (generator exchange 2010) Subjective fevers and mobile density noted on PPM lead (unclear if thrombin sheath or vegetation) Blood cultures are negative. Hx of partial anomalous venous return, ASD and PDA s/p repair at age 3 in [place] Hx of pulmonary embolus Non compliance with meds and outpatient follow ups Plan: Will proceed with a ANDREZ tomorrow for further evaluation of this mobile density noted on PPM lead. Subjective Date of service: 12/27/16 Interval history: Patient has no complaints. Objective Vital Signs Temp Pulse Pulse Pulse Resp BP Pulse Ox 12/27/16 13:29 98.2 F 55 L 14 97/55 12/27/16 10:00 68 12/27/16 08:00 98.7 F 86 18 121/72 98 12/27/16 06:04 97.9 F 50 L 18 101/59 99 12/27/16 01:01 97.3 F L 63 18 123/78 99 12/26/16 22:00 60 12/26/16 20:49 98.4 F 59 L 18 112/60 97 12/26/16 17:20 98.6 F 60 18 114/57 98 - Physical Examination General: No Apparent Distress HEENT: Positive: PERRL Neck: Positive: trachea midline Cardiac: Positive: Reg Rate and Rhythm Lungs: Positive: Decreased Breath Sounds Neuro: Positive: Grossly Intact Abdomen: Positive: Soft, Active Bowel Sounds Extremities: Absent: edema
[2016-12-28] MEDS: BACTRIM DS PO SCH (09:24)
[2016-12-28] MEDS: HALFPRIN EC PO SCH (09:25)
[2016-12-28] MEDS: BETAPACE PO SCH (09:25)
[2016-12-28 09:48] VITALS: BP 118/76
--- NOTE | 2016-12-28 10:44 | Discharge Summary ---
Providers - Providers Date of Admission: 12/23/16 10:16 Date of discharge: 12/28/16 Attending physician: ANIKA PLEITEZ 12/23/16 12:26 Consult to Physician [CONS] Routine Consulting Provider: BOB KRUSE Reason For Exam: chest pain/ASD Place consult to:: [facility] Notified:: nidhi Was contact made?: Yes Time called:: 14:38 Primary care physician: CHARGER TESTER Hospitalization Reason for admission: chest pain Condition: Fair Hospital course: Mr. Espinosa is a 21-year-old male who presented to the emergency room with chest pain. He has a background history of cardiac surgery as a child. He also has a history of being noncompliant with treatment and follow-ups. He was evaluated by the stiff leg derrick operator and he was noted to be in paroxysmal atrial tachycardia while he was here. Patient was resumed on his sotalol. A review of his echocardiogram done in June 2006-Fibrin buildup noted on the pacemaker leads; cultures were negative. It was felt that the patient did not have endocarditis and he was cleared for discharge by the stiff leg derrick operator. His chest pain resolved prior to discharge. Condition at discharge-stable 31 minutes spent on discharge Disposition: DISCHARGED TO HOME OR SELFCARE - Discharge Diagnoses (1) Atrial flutter Status: Acute Qualifiers: Atrial flutter type: A (2) Chronic systolic heart failure Status: Acute Core Measure Documentation - Palliative Care Palliative Care/ Comfort Measures: Not Applicable - Core Measures Any of the following diagnoses?: heart failure - Heart Failure Discharge Requirements LJ/ARB for LVSD if EF <40%: No Reason for no LJ/ARB: Hypotension Beta stanford at discharge: Yes Exam - Constitutional Vitals: Temp Pulse Resp BP Pulse Ox 97.5 F L 66 18 96/58 98 12/28/16 08:55 12/28/16 09:25 12/28/16 08:55 12/28/16 09:25 12/28/16 08:55 General appearance: Present: no acute distress, well-nourished - EENT Eyes: Present: PERRL, EOM intact. Absent: scleral icterus, conjunctival injection ENT: hearing intact, clear oral mucosa, no oropharyngeal erythema, no poor dentition - Neck Neck: Present: supple, normal ROM. Absent: enlarged thyroid, masses or JVD - Respiratory Respiratory effort: normal Respiratory: negative: diminished, rales, rhonchi, wheezing - Cardiovascular Rhythm: regular Heart Sounds: Present: S1 & S2. Absent: gallop - Extremities Extremities: no ischemia, pulses intact, pulses symmetrical Peripheral Pulses: within normal limits - Abdominal General gastrointestinal: Present: soft, non-tender, non-distended Male genitourinary: Present: deferred - Rectal Rectal Exam: deferred - Integumentary Integumentary: Present: clear - Musculoskeletal Musculoskeletal: strength equal bilaterally - Psychiatric Psychiatric: appropriate mood/affect, intact judgment & insight - Neurologic Neurologic: moves all extremities Plan Activity: no restrictions, advance as tolerated Diet: low salt Additional Instructions: F/u stiff leg derrick operator at [place] Follow up with: PRIMARY CAREMD [Primary Care Provider] - 3-5 Days Prescriptions: Aspirin [Adult Low Dose Aspirin EC] 81 mg PO DAILY #30 tablet. Sotalol HCl [Betapace] 80 mg PO Q12H #60 tablet
--- NOTE | 2016-12-28 11:04 | Progress Note ---
Assessment and Plan Atypical, musculoskeletal type chest pain Paroxysmal Atrial tachycardia/flutter sotalol resumed for suppression 4 chamber Dilated Cardiomyopathy EF 35-40% on echo 06/2016 SSS s/p PPM (generator exchange 2010) Fibrin buildup noted on the pacemaker leads No need for ANDREZ - it will not change control specialist Blood cultures are negative to date Hx of partial anomalous venous return, ASD and PDA s/p repair at age 3 in [place] Hx of pulmonary embolus Non compliance with meds and outpatient follow ups Recommendations: Obtain 12 lead ECG prior to discharge No further cardiac intervention Subjective Date of service: 12/28/16 Principal diagnosis: Weakness Interval history: No interval changes ANDREZ is not warranted Objective Vital Signs Temp Pulse Pulse Pulse Resp BP BP 12/28/16 09:25 66 96/58 12/28/16 08:55 97.5 F L 88 18 118/76 12/28/16 04:00 97.5 F L 55 L 20 92/54 12/28/16 01:02 97.5 F L 51 L 20 95/50 12/27/16 22:00 50 L 12/27/16 21:11 97.6 F 55 L 20 101/60 12/27/16 20:13 20 12/27/16 16:00 98.2 F 68 20 111/60 12/27/16 13:29 98.2 F 55 L 14 97/55 12/27/16 12:00 97.3 F L 55 L 18 112/74 Pulse Ox 12/28/16 09:25 12/28/16 08:55 98 12/28/16 04:00 98 12/28/16 01:02 97 12/27/16 22:00 12/27/16 21:11 12/27/16 20:13 12/27/16 16:00 98 12/27/16 13:29 12/27/16 12:00 98 - Physical Examination General: No Apparent Distress HEENT: Positive: PERRL Neck: Positive: trachea midline Cardiac: Positive: Reg Rate and Rhythm Lungs: Positive: Normal Exam Neuro: Positive: Grossly Intact Abdomen: Positive: Soft, Active Bowel Sounds Extremities: Absent: edema
== END 2016-12-28 11:10 | disposition home or self-care (01) | DRG 309 ==
LOC: ED 06:01 → EEVIPCON 10:16 → 4A 10:16
PROVIDERS: ADMIT Internal Medicine; ATTEND Hospitalist
DX: I48.92 Unspecified atrial flutter (principal); R65.10 Systemic inflammatory response syndrome (SIRS) of non-infectious origin without acute organ dysfunction; I50.22 Chronic systolic (congestive) heart failure; Q21.1 Atrial septal defect; R07.89 Other chest pain; I47.1 Supraventricular tachycardia; I42.0 Dilated cardiomyopathy; J32.9 Chronic sinusitis, unspecified; I49.5 Sick sinus syndrome; J45.909 Unspecified asthma, uncomplicated; F12.90 Cannabis use, unspecified, uncomplicated; J32.0 Chronic maxillary sinusitis; Z86.711 Personal history of pulmonary embolism; Z95.1 Presence of aortocoronary bypass graft; Z95.0 Presence of cardiac pacemaker; Z91.14 Patient's other noncompliance with medication regimen
CPT/HCPCS: 36415; 71010; 80048; 80053; 84484; 85025; 87040; 93005; 93010; 93306; 99285; J7030

== ENCOUNTER 2020-11-19 07:23 | Inpatient (IN) | payer MEDICAID, OTHER ==
--- NOTE | 2020-11-19 07:34 | Event Note ---
ED Screening Note ED Screening Note: hx pda/asd repair off meds x 1 y has ppm co cp and sob no fever or chills tachy in triage does not follow up with cards/pcp This initial assessment/diagnostic orders/clinical plan/treatment(s) is/are subject to change based on patients health status, clinical progression and re- assessment by fellow clinical providers in the ED. Further treatment and workup at subsequent clinical providers discretion. Patient/guardian urged not to elope from the ED as their condition may be serious if not clinically assessed and managed. Initial orders include: 12 lead cards w/u
[2020-11-19] MEDS ORDERED: dilTIAZem 25 MG/5 ML INJ IV ONE (07:54)
[2020-11-19] MEDS ORDERED: dilTIAZem/D5W 100 MG/100 ML BAG IV SCH (08:00)
--- NOTE | 2020-11-19 08:00 | Emergency Department Report ---
ED Shortness of Breath HPI - General Chief Complaint: Chest Pain Stated Complaint: PAIN SHOULDER/CHEST Time Seen by Provider: 11/19/20 07:25 Source: patient Mode of arrival: Ambulatory Limitations: No Limitations - History of Present Illness Initial Comments: Patient is 25 years old male with history of congestive heart failure and pulmonary embolism. Patient stated that he was diagnosed with congestive heart failure when he was a kid and he had an open heart surgery at that time. Patient stated that he was taking his medication until he got into the alf and since then he did not have any medication. Patient stated that he was on blood thinner but he does not know the name of it. Patient presented to the emergency room with a chief complaint of chest pain, diffuse with radiation to the neck associated with shortness of breath, orthopnea and cough. Patient denied any fever or chills. Patient found to be tachycardic at 138 and his EKG showed atrial flutter 2:1 ratio with RVR. Patient received Cardizem 10 mg IV and started on Cardizem drip. MD Complaint: shortness of breath, chest pain -: week(s) Pain Scale: 5 Quality: sharp Known History Of: congestive heart failure Treatments Prior to Arrival: none - Related Data Previous Rx's Medication Instructions Recorded Last Taken Type Amiodarone [Cordarone 200 MG TAB] 200 mg PO BID #60 tablet 09/07/17 Unknown Rx Apixaban [Eliquis] 5 mg PO Q12HR #60 tablet 09/07/17 Unknown Rx Aspirin EC [Halfprin EC] 81 mg PO DAILY #30 tablet 09/07/17 Unknown Rx Allergies Allergy/AdvReac Type Severity Reaction Status Date / Time No Known Allergies Allergy Verified 10/29/13 00:20 ED Review of Systems ROS: Stated complaint: PAIN SHOULDER/CHEST Other details as noted in HPI Comment: All other systems reviewed and negative Constitutional: denies: chills, fever Respiratory: cough, orthopnea, shortness of breath, SOB with exertion, SOB at rest. denies: wheezing Cardiovascular: chest pain, palpitations Gastrointestinal: denies: abdominal pain, nausea, vomiting Musculoskeletal: denies: back pain Neurological: denies: headache, weakness, numbness, paresthesias, confusion, abnormal gait ED Past Medical Hx - Past Medical History Previous Medical History?: Yes Hx Heart Attack/AMI: No Hx Congestive Heart Failure: Yes Hx Diabetes: No Hx Pulmonary Embolism: Yes Hx Asthma: Yes Hx COPD: No Hx HIV: No Additional medical history: Atrial tachycardia, atrial flutter, sick sinus syndrome, dilated cardiomyopathy (EF 30-35% 2014). Congenital heart disease - Surgical History Past Surgical History?: Yes Hx Open Heart Surgery: Yes (WHEN 3 YEARS OLD) Hx Pacemaker: Yes Additional Surgical History: Atrial septal defect repair and patent ductus arteriosus with anomalous venous return. pacemaker replaced by Dr. Bennett at [facility] in 2011 - Social History Smoking Status: Never Smoker - Medications Home Medications: Home Medications Medication Instructions Recorded Confirmed Last Taken Type Amiodarone [Cordarone 200 MG TAB] 200 mg PO BID #60 tablet 09/07/17 Unknown Rx Apixaban [Eliquis] 5 mg PO Q12HR #60 tablet 09/07/17 Unknown Rx Aspirin EC [Halfprin EC] 81 mg PO DAILY #30 tablet 09/07/17 Unknown Rx ED Physical Exam - General Limitations: No Limitations General appearance: alert, in no apparent distress - Head Head exam: Present: atraumatic, normocephalic, normal inspection - Eye Eye exam: Present: normal appearance, PERRL - ENT ENT exam: Present: normal exam, normal orophraynx, mucous membranes moist - Neck Neck exam: Present: normal inspection, full ROM. Absent: tenderness, meningismus, lymphadenopathy, thyromegaly - Respiratory Respiratory exam: Present: normal lung sounds bilaterally - Cardiovascular Cardiovascular Exam: Present: tachycardia - GI/Abdominal GI/Abdominal exam: Present: soft, normal bowel sounds. Absent: distended, tenderness, guarding, rebound, rigid, organomegaly, mass, bruit, pulsatile mass, hernia - Extremities Exam Extremities exam: Present: normal inspection, full ROM, normal capillary refill. Absent: tenderness, pedal edema, calf tenderness - Back Exam Back exam: Present: normal inspection, full ROM. Absent: CVA tenderness (R), CVA tenderness (L) - Neurological Exam Neurological exam: Present: alert, oriented X3, CN II-XII intact, normal gait, reflexes normal. Absent: motor sensory deficit - Psychiatric Psychiatric exam: Present: normal mood - Skin Skin exam: Present: warm, intact, normal color ED Course Vital Signs 11/19/20 11/19/20 11/19/20 07:29 08:08 08:35 Temperature 97.7 F Pulse Rate 138 H 125 H Respiratory 20 13 Rate Blood Pressure 96/62 Blood Pressure 101/68 [Right] O2 Sat by Pulse 98 100 Oximetry 11/19/20 11/19/20 11/19/20 08:39 08:45 09:00 Temperature Pulse Rate 105 H 131 H 91 H Respiratory 14 14 18 Rate Blood Pressure 96/57 99/49 Blood Pressure 93/48 [Right] O2 Sat by Pulse 100 98 99 Oximetry 11/19/20 09:15 Temperature Pulse Rate 81 Respiratory 11 L Rate Blood Pressure 92/44 Blood Pressure [Right] O2 Sat by Pulse 99 Oximetry ED Medical Decision Making - Lab Data Result diagrams: 11/19/20 08:01 11/19/20 08:01 - EKG Data -: EKG Interpreted by Me Rate: tachycardia - EKG Data 11/19/20 09:07 EKG showed atrial flutter with RVR and a heart rate of 138. - Radiology Data Radiology results: report reviewed - Medical Decision Making Patient is 25 years old male with history of congestive heart failure and pulmonary embolism. Patient stated that he was diagnosed with congestive heart failure when he was a kid and he had an open heart surgery at that time. Patient stated that he was taking his medication until he got into the alf and since then he did not have any medication. Patient stated that he was on blood thinner but he does not know the name of it. Patient presented to the emergency room with a chief complaint of chest pain, diffuse with radiation to the neck associated with shortness of breath, orthopnea and cough. Patient d enied any fever or chills. Patient found to be tachycardic at 138 and his EKG showed atrial flutter 2:1 ratio with RVR. Patient received Cardizem 10 mg IV. Patient heart rate improved significantly. Labs reviewed and is unremarkable including a negative D-dimer. Chest x-ray showed congestive heart failure with pulmonary edema. I discussed the patient with Dr. Dhillon, she advised to admit the patient to ICU. Critical Care Time: Yes Critical care time in (mins) excluding proc time.: 30 Critical care attestation.: If time is entered above; I have spent that time in minutes in the direct care of this critically ill patient, excluding procedure time. ED Disposition Clinical Impression: Atrial flutter with rapid ventricular response, Chest pain, Shortness of breath, Acute exacerbation of congestive heart failure Disposition: - OP ADMIT IP TO THIS HOSP Is pt being admited?: Yes Condition: Stable Instructions: Chest Pain (ED) Referrals: PRIMARY CARE, [Primary Care Provider] - 3-5 Days
--- NOTE | 2020-11-19 08:19 | XRay Report ---
CHEST 2 VIEWS INDICATION: Chest Pain. COMPARISON: 09/05/2017 FINDINGS: Support devices: None. Multilead pacemaker device is unchanged in position. Heart: Within normal limits. Lungs/pleura: Pulmonary vessels are slightly prominent on today's exam which could represent mild pul monary venous congestion. No infiltrate, pleural fluid or pneumothorax. Additional findings: None. IMPRESSION: Mild central pulmonary venous congestion, slightly increased since the previous exam. Signer Name: Ronald Valero Jr, MD Signed: 11/19/2020 8:15 AM Workstation Name: [id number]
[2020-11-19 08:26] LABS: Basophils % (Auto) 0.3 % (0.0-1.8); Eosinophils # (Auto) 0.1 K/mm3 (0.0-0.4); Eosinophils % (Auto) 1.7 % (0.0-4.3); Hematocrit 40.5 % (35.5-45.6); Hemoglobin 13.8 gm/dl (11.8-15.2); Lymphocytes # (Auto) 1.1 K/mm3 (1.2-5.4); Lymphocytes % (Auto) 13.1 % (13.4-35.0); Mean Corpuscular HGB Conc 34 % (32-34); Mean Corpuscular Volume 87 fl (84-94); Monocytes # (Auto) 0.7 K/mm3 (0.0-0.8); Monocytes % (Auto) 8.1 % (0.0-7.3); Platelet Count 175 K/mm3 (140-440); Red Blood Count 4.65 M/mm3 (3.65-5.03); Red Cell Distribution Width 13.7 % (13.2-15.2)
[2020-11-19 08:36] LABS: INR 1.04 (0.87-1.13)
[2020-11-19 08:37] LABS: Partial Thromboplastin Time 30.9 Sec. (24.2-36.6)
[2020-11-19 08:47] LABS: Alanine Aminotransferase 12 units/L (7-56); Albumin 4.3 g/dL (3.9-5); BUN/Creatinine Ratio 16; Blood Urea Nitrogen 16 mg/dL (9-20); Calcium 9.3 mg/dL (8.4-10.2); Hemolysis Index 4
[2020-11-19 09:08] LABS: Bilirubin,Direct < 0.2 mg/dL (0-0.2)
--- NOTE | 2020-11-19 09:46 | History and Physical Report ---
History of Present Illness Date of examination: 11/19/20 Date of admission: 11/19/20 Chief complaint: A flutter with rapid ventricular rate and chest pain History of present illness: 25 years old male patient with history of congestive heart failure and pulmonary embolism on dual chamber pacemaker, congenital heart disease ASD and PDA with repair at the age of 3 noncompliant with medications, currently out of the halfway presented to the emergency room with the complaints of chest pain and palpitations. Patient has history of atrial fibrillation on amiodarone and Eliquis however patient was noncompliant Initial evaluation in the ED was consistent with atrial fib/ flutter with rapid ventricular rate, patient was a started on Cardizem drip At the time of my evaluation patient was feeling slightly better, Denies nausea vomiting or abdominal pain Denies chest pain, mild shortness of breath Denies headache dizziness weakness or numbness First troponin is negative, mild elevation of proBNP Chest x-ray mild central pulmonary congestion Past History Past Medical History: atrial fib, arrhythmia (Atrial flutter), heart failure, other (PPM) Past Surgical History: Other (PPM placement, ASD/ PDA surgery as an infant) Social history: denies: smoking, alcohol abuse Family history: no significant family history Medications and Allergies Allergies Allergy/AdvReac Type Severity Reaction Status Date / Time No Known Allergies Allergy Verified 10/29/13 00:20 Home Medications Medication Instructions Recorded Confirmed Last Taken Type Amiodarone [Cordarone 200 MG TAB] 200 mg PO BID #60 tablet 09/07/17 Unknown Rx Apixaban [Eliquis] 5 mg PO Q12HR #60 tablet 09/07/17 Unknown Rx Aspirin EC [Halfprin EC] 81 mg PO DAILY #30 tablet 09/07/17 Unknown Rx Active Meds: Active Medications Diltiazem HCl (Cardizem/D5w 100mg/100ml) 100 mg in 100 mls @ 5 mls/hr IV TITR ARLETH; Protocol Review of Systems Constitutional: fatigue, other (Palpitation), no weight loss, no weight gain, no fever, no chills Cardiovascular: chest pain, palpitations, lightheadedness Respiratory: shortness of breath, no cough, no cough with sputum Gastrointestinal: no abdominal pain, no nausea, no vomiting Genitourinary Male: no dysuria, no hematuria Musculoskeletal: no myalgias, no arthritis Integumentary: no rash, no lesions Neurological: no paralysis, no weakness, no parathesias Psychiatric: no anxiety, no depression Endocrine: no cold intolerance, no heat intolerance Hematologic/Lymphatic: no easy bruising, no easy bleeding Allergic/Immunologic: no urticaria, no allergic rhinitis Exam - Constitutional Vitals: Temp Pulse Resp BP Pulse Ox 97.7 F 81 11 L 92/44 99 11/19/20 07:29 11/19/20 09:15 11/19/20 09:15 11/19/20 09:15 11/19/20 09:15 General appearance: Present: mild distress, well-nourished - EENT Eyes: Present: PERRL, EOM intact - Neck Neck: Present: supple, normal ROM - Respiratory Respiratory effort: normal Respiratory: bilateral: diminished, rales, negative: rhonchi, wheezing - Cardiovascular Rhythm: irregularly irregular Heart Sounds: Present: S1 & S2 (Tachycardia) - Extremities Extremities: no ischemia, No edema - Abdominal General gastrointestinal: Present: soft, non-tender, non-distended, normal bowel sounds - Integumentary Integumentary: Present: clear, warm - Musculoskeletal Musculoskeletal: strength equal bilaterally, generalized weakness - Psychiatric Psychiatric: appropriate mood/affect, cooperative - Neurologic Neurologic: moves all extremities HEART Score - HEART Score Troponin: Troponin T < 0.010 ng/mL (0.00-0.029) 11/19/20 08:01 Results - Labs CBC & Chem 7: 11/19/20 08:01 11/19/20 08:01 Labs: Abnormal lab results 11/19/20 11/19/20 11/19/20 Range/Units 08:01 08:01 08:01 Lymph % (Auto) 13.1 L (13.4-35.0) % Allen % (Auto) 8.1 H (0.0-7.3) % Lymph # (Auto) 1.1 L (1.2-5.4) K/mm3 Seg Neutrophils % 76.8 H (40.0-70.0) % Carbon Dioxide 34 H (22-30) mmol/L NT-Pro-B Natriuret Pep 683.1 H (0-450) pg/mL Assessment and Plan --Atrial fibrillation with rapid ventricular rate; On Cardizem drip, titrate heart rate to less than 100 Patient was on amiodarone and Eliquis at home, will resume if okay with cardiology Cardiology consult --Chest pain; evaluate for acute coronary syndrome Serial cardiac enzymes, echocardiogram, for LV function ejection fraction --History of congestive heart failure from childhood-[EF 40 to 45% in 2017] Antifailure medications, echocardiogram for LV function ejection fraction Input output monitoring, low-sodium and fluid restriction --Medical noncompliance; Will intake counselor the patient to comply with medications diet And follow-up visits --Substance abuse/marijuana Advised to quit recreational drug use --DVT prophylaxis; on Eliquis Closely monitor the patient and adjust the management as needed Plan of care reviewed with the patient and his nurse
[2020-11-19] MEDS ORDERED: NITROGLYCERIN 0.4 MG TAB SUBL SL PRN (10:37)
[2020-11-19 11:21] LABS: Bilirubin,Urine NEG (Negative); Blood,Urine NEG (Negative); Color,Urine Yellow (Yellow); Mucus,Urine 1+ /HPF; Protein,Urine <15 mg/dL mg/dL (Negative); Urobilinogen,Urine < 2.0 mg/dL (<2.0)
--- NOTE | 2020-11-19 11:25 | Consultation ---
History of Present Illness Consult date: 11/19/20 Consult reason: atrial fibrillation History of present illness: Patient is a 25-year-old man admitted through the emergency room with rapid atrial fibrillation. He was placed on intravenous diltiazem with adequate rate control, and is being admitted to the hospital for further evaluation. Cardiac consultation was requested for further evaluation and management. The patient is known to us from 2 years ago when he visited our office. At that time he was incarcerated and was referred for outpatient consultation. He has a long history of congenital heart disease, underwent repair of an ASD and the PDA at age 3. He also has a dual-chamber pacemaker in situ. At the time of his visit to us, we noted a history of paroxysmal atrial flutter and fibrillation. He was managed on amiodarone and Eliquis. The patient states that he was released from penitentiary about a year ago and subsequently stopped taking his medications, and has not had any medical or cardiac follow-up since then. His symptoms of lightheadedness, shortness of breath and intermittent palpitations have been ongoing for several months. There are no clear provoking factors although he admits to intermittent use of alcohol as well as high energy caffeinated beverages. Currently he is in the emergency room, remains in atrial fibrillation with a ventricular rate in the 110s to 120s. Past History Past Medical History: atrial fib, arrhythmia (Atrial flutter), other (Dual- chamber pacemaker) Past Surgical History: Other (Congenital heart disease, ASD repair at age 3) Social history: denies: smoking, alcohol abuse Family history: no significant family history Medications and Allergies Allergies Allergy/AdvReac Type Severity Reaction Status Date / Time No Known Allergies Allergy Verified 10/29/13 00:20 Home Medications Medication Instructions Recorded Confirmed Last Taken Type Amiodarone [Cordarone 200 MG TAB] 200 mg PO BID #60 tablet 09/07/17 Unknown Rx Apixaban [Eliquis] 5 mg PO Q12HR #60 tablet 09/07/17 Unknown Rx Aspirin EC [Halfprin EC] 81 mg PO DAILY #30 tablet 09/07/17 Unknown Rx Active Meds: Active Medications Apixaban (Apixaban 5 Mg Tab) 5 mg PO Q12HR [facility]; Protocol Aspirin (Aspirin Ec 81 Mg Tab) 81 mg PO DAILY [facility] Famotidine (Famotidine 20 Mg Tab) 20 mg PO QDAY [facility] Morphine Sulfate (Morphine 2 Mg/1 Ml Inj) 2 mg IV Q4H PRN PRN Reason: Pain, Moderate (4-6) Nitroglycerin (Nitroglycerin 0.4 Mg Tab Subl) 0.4 mg SL .Q5MIN PRN PRN Reason: Chest Pain Review of Systems Cardiovascular: chest pain, palpitations, rapid/irregular heart beat, lightheadedness, shortness of breath, no orthopnea, no edema, no syncope Physical Examination Vital Signs Temp Pulse Resp BP Pulse Ox 97.7 F 138 H 20 101/68 98 11/19/20 07:29 11/19/20 07:29 11/19/20 07:29 11/19/20 07:29 11/19/20 07:29 General appearance: no acute distress HEENT: Positive: PERRL Neck: Positive: neck supple Cardiac: Positive: irregularly irregular Lungs: Positive: clear to auscultation Neuro: Positive: Grossly Intact Abdomen: Positive: Soft Male genitourinary: Positive: deferred Skin: Positive: Clear Extremities: Absent: edema Results 11/19/20 08:01 11/19/20 08:01 Cardiac Enzymes 11/19/20 Range/Units 08:01 AST 14 (5-40) units/L Coagulation 11/19/20 Range/Units 08:01 PT 13.4 (12.2-14.9) Sec. INR 1.04 (0.87-1.13) APTT 30.9 (24.2-36.6) Sec. CBC 11/19/20 Range/Units 08:01 WBC 8.7 (4.5-11.0) K/mm3 RBC 4.65 (3.65-5.03) M/mm3 Hgb 13.8 (11.8-15.2) gm/dl Hct 40.5 (35.5-45.6) % Plt Count 175 (140-440) K/mm3 Lymph # (Auto) 1.1 L (1.2-5.4) K/mm3 Foster # (Auto) 0.7 (0.0-0.8) K/mm3 Eos # (Auto) 0.1 (0.0-0.4) K/mm3 Baso # (Auto) 0.0 (0.0-0.1) K/mm3 Comprehensive Metabolic Panel 01/21/21 Range/Units 08:01 Sodium 141 (137-145) mmol/L Potassium 3.9 (3.6-5.0) mmol/L Chloride 102.1 (98-107) mmol/L Carbon Dioxide 34 H (22-30) mmol/L BUN 16 (9-20) mg/dL Creatinine 1.0 (0.8-1.3) mg/dL Glucose 99 (75-100) mg/dL Calcium 9.3 (8.4-10.2) mg/dL Direct Bilirubin < 0.2 (0-0.2) mg/dL Indirect Bilirubin 0.3 mg/dL AST 14 (5-40) units/L ALT 12 (7-56) units/L Alkaline Phosphatase 110 (35-129) units/L Total Protein 7.2 (6.3-8.2) g/dL Albumin 4.3 (3.9-5) g/dL EKG interpretations - Telemetry EKG Rhythm: Atrial Flutter Assessment and Plan - Patient Problems (1) Atrial flutter with rapid ventricular response Current Visit: Yes Status: Acute Plan to address problem: We will treat atrial flutter and fibrillation with amiodarone, diltiazem and Eliquis. An echocardiogram will be done for left ventricular function assessment. If flutter persists on medical therapy we will consider ANDREZ guided cardioversion.
[2020-11-19 11:30] LABS: Amphetamine Screen,Urine Negative; Benzodiazepines Screen,Urine Negative; Cocaine Screen,Urine Negative; Methadone Screen,Urine Negative; Opiate Screen,Urine Negative
[2020-11-19 11:54] LABS: Cannabinoid Screen,Urine PRESUMPTIVE POSITIVE
[2020-11-19] MEDS ORDERED: AMIODARONE 900 MG in DEXTROSE 5% IN WATER 482 ML IV SCH (12:00)
[2020-11-19] MEDS: dilTIAZem 60 MG TAB PO SCH ×3 (12:55→23:38)
[2020-11-19] MEDS ORDERED: ACETAMINOPHEN 325 MG TAB PO PRN (14:05)
[2020-11-19] MEDS: APIXABAN 5 MG TAB PO SCH (22:10)
[2020-11-19] MEDS: MORPHINE 2 MG/1 ML INJ IV PRN (22:13)
[2020-11-20] MEDS: dilTIAZem 60 MG TAB PO SCH (06:11)
[2020-11-20] MEDS: ASPIRIN EC 81 MG TAB PO SCH (09:46)
[2020-11-20] MEDS: FAMOTIDINE 20 MG TAB PO SCH (09:47)
[2020-11-20] MEDS: APIXABAN 5 MG TAB PO SCH ×2 (09:47→21:25)
--- NOTE | 2020-11-20 10:42 | Progress Note ---
Assessment and Plan Paroxysmal Atrial flutter on intravenous amiodarone drip and oral diltiazem eliquis resumed SSS s/p PPM (generator exchange 2010) Hx of partial anomalous venous return, ASD and PDA s/p repair at age 3 in [place] Non compliance with meds and outpatient follow ups Plan: We will transition to oral amiodarone. Will change Diltiazem to long acting form. Continue oral anticoagulation with Eliquis. Stable cardiac kim. Subjective Date of service: 11/20/20 Interval history: Patient is resting in bed and appears comfortable. He has returned to a stable sinus rhythm. Objective Vital Signs Temp Pulse Pulse Pulse Pulse Resp BP 11/20/20 09:05 98.1 F 67 18 98/56 11/20/20 06:11 59 L 97/49 11/20/20 03:30 69 16 94/45 11/20/20 03:27 95/58 11/20/20 00:42 97.9 F 52 L 18 90/58 11/20/20 00:00 50 L 52 L 52 L 18 11/19/20 23:41 95/58 11/19/20 23:38 57 L 95/58 11/19/20 23:37 95/58 11/19/20 23:30 95/58 11/19/20 23:00 58 L 11 L 97/61 11/19/20 22:30 60 19 102/62 11/19/20 22:00 98.7 F 60 16 102/61 11/19/20 21:30 61 21 98/61 11/19/20 21:00 62 20 92/57 11/19/20 20:30 61 21 95/56 11/19/20 20:00 61 15 94/53 11/19/20 19:30 71 17 91/55 11/19/20 19:01 88 16 91/52 11/19/20 18:30 66 21 85/53 11/19/20 18:27 67 86/53 11/19/20 18:00 67 16 86/53 11/19/20 17:30 67 20 83/44 11/19/20 17:00 68 19 92/45 11/19/20 16:30 68 22 89/47 11/19/20 16:15 67 22 84/50 11/19/20 16:00 68 16 84/50 11/19/20 15:45 73 19 88/46 11/19/20 15:31 94 H 22 88/46 11/19/20 15:15 74 17 83/49 11/19/20 15:01 87 19 83/49 11/19/20 14:45 88 20 85/49 11/19/20 14:31 101 H 21 85/27 11/19/20 14:15 108 H 20 84/44 11/19/20 14:00 126 H 12 84/44 11/19/20 13:45 84 18 84/48 11/19/20 13:31 110 H 19 88/47 11/19/20 13:15 96 H 20 90/48 11/19/20 13:01 101 H 19 90/48 11/19/20 12:45 89 19 84/53 11/19/20 12:31 110 H 20 92/57 11/19/20 12:15 109 H 20 88/51 11/19/20 12:01 101 H 21 88/51 11/19/20 11:57 104 H 17 Pulse Ox 11/20/20 09:05 95 11/20/20 06:11 11/20/20 03:30 98 11/20/20 03:27 11/20/20 00:42 98 11/20/20 00:00 98 11/19/20 23:41 98 11/19/20 23:38 11/19/20 23:37 98 11/19/20 23:30 98 11/19/20 23:00 97 11/19/20 22:30 96 11/19/20 22:00 97 11/19/20 21:30 99 11/19/20 21:00 97 11/19/20 20:30 97 11/19/20 20:00 98 11/19/20 19:30 97 11/19/20 19:01 96 11/19/20 18:30 96 11/19/20 18:27 11/19/20 18:00 11/19/20 17:30 97 11/19/20 17:00 96 11/19/20 16:30 97 11/19/20 16:15 98 11/19/20 16:00 98 11/19/20 15:45 98 11/19/20 15:31 95 11/19/20 15:15 98 11/19/20 15:01 96 11/19/20 14:45 97 11/19/20 14:31 97 11/19/20 14:15 97 11/19/20 14:00 96 11/19/20 13:45 97 11/19/20 13:31 98 11/19/20 13:15 97 11/19/20 13:01 98 11/19/20 12:45 99 11/19/20 12:31 98 11/19/20 12:15 98 11/19/20 12:01 100 11/19/20 11:57 99 - Physical Examination General: No Apparent Distress HEENT: Positive: PERRL Neck: Positive: neck supple Cardiac: Positive: Reg Rate and Rhythm Lungs: Positive: Decreased Breath Sounds Neuro: Positive: Grossly Intact Abdomen: Positive: Soft Extremities: Absent: edema
[2020-11-20] MEDS: AMIODARONE 200 MG TAB PO SCH (12:17)
[2020-11-20] MEDS: dilTIAZem CD 180 MG CAP PO SCH (12:18)
[2020-11-20] MEDS: LISINOPRIL 5 MG TAB PO SCH (15:27)
[2020-11-20] MEDS: SPIRONOLACTONE 25 MG TAB PO SCH (15:28)
--- NOTE | 2020-11-20 17:10 | Progress Note ---
Assessment and Plan Assessment and plan: --Atrial fibrillation with rapid ventricular rate; Now rate controlled, transition to p.o. amiodarone and Cardizem Cardiology evaluation and recommendations noted and appreciated Continue anticoagulation with Eliquis --Atypical chest pain; symptoms resolved echocardiogram, for LV function ejection fraction --Acute on chronic systolic congestive heart failure EF during this admission is 30 to 35% Input output monitoring, on Cardizem ,spironolactone, lisinopril no beta-blockers due to bradycardia Closely monitor and adjust, low-sodium diet fluid restriction Patient has history of congestive heart failure from childhood-[EF 40 to 45% in 2017] --Medical noncompliance; Wrongly advised the patient to comply with medications diet And follow-up doctors visits --Substance abuse/marijuana Advised to quit recreational drug use --DVT prophylaxis; on Eliquis Closely monitor the patient and adjust the management as needed Plan of care reviewed with the patient and his nurse Brief history; 25-year-old male patient with significant past medical history of congenital heart disease status post ASD and PDA repair at the age of 3 and history of dural chamber pacemaker placement was admitted through emergency room with paroxysmal atrial flutter fibrillation with rapid ventricular rate Patient received Cardizem and amiodarone IV transition to p.o. today with rate controlled in sinus rhythm Patient is placed on Eliquis, had some vague chest pain and shortness of breath and dizziness which significantly improved. Patient is evaluated by cardiology medications optimized. Possible discharge in 1 to 2 days if stable 11/20/2020; patient is in sinus rhythm with mild bradycardia Continue current cardiac medications, input output monitoring Symptoms significantly improved, possible discharge in 1 to 2 days if stable Cardiology evaluation recommendations noted and appreciated Possible discharge in 1 to 2 days if stable Patient counseled compliance with medications diet and follow-up visits History Interval history: I have seen and examined the patient at the bedside this afternoon Patient's chart and medications reviewed Patient was admitted with Joaquin hawk with rapid ventricular rate Now rate well controlled, patient denies chest pain Shortness of breath significantly improved Vital signs noted Hospitalist Physical - Constitutional Vitals: Temp Pulse Resp BP Pulse Ox 98.2 F 62 20 96/53 96 11/20/20 12:44 11/20/20 12:44 11/20/20 12:44 11/20/20 12:44 11/20/20 12:44 General appearance: Present: mild distress, well-nourished - EENT Eyes: Present: PERRL, EOM intact - Neck Neck: Present: supple, normal ROM - Respiratory Respiratory effort: normal Respiratory: bilateral: diminished, negative: rales, rhonchi, wheezing - Cardiovascular Rhythm: regular Heart Sounds: Present: S1 & S2 - Extremities Extremities: no ischemia, No edema - Abdominal General gastrointestinal: soft, non-tender, non-distended, normal bowel sounds - Integumentary Integumentary: Present: clear, warm - Psychiatric Psychiatric: appropriate mood/affect, cooperative - Neurologic Neurologic: CNII-XII intact, moves all extremities HEART Score - HEART Score Troponin: Troponin T < 0.010 ng/mL (0.00-0.029) 11/19/20 18:01 Results - Labs CBC & Chem 7: 11/19/20 08:01 11/19/20 08:01 Labs: Laboratory Last Values WBC 8.7 K/mm3 (4.5-11.0) 11/19/20 08:01 RBC 4.65 M/mm3 (3.65-5.03) 11/19/20 08:01 Hgb 13.8 gm/dl (11.8-15.2) 11/19/20 08:01 Hct 40.5 % (35.5-45.6) 11/19/20 08:01 MCV 87 fl (84-94) 11/19/20 08:01 MCH 30 pg (28-32) 11/19/20 08:01 MCHC 34 % (32-34) 11/19/20 08:01 RDW 13.7 % (13.2-15.2) 11/19/20 08:01 Plt Count 175 K/mm3 (140-440) 11/19/20 08:01 Lymph % (Auto) 13.1 % (13.4-35.0) L 11/19/20 08:01 [place] % (Auto) 8.1 % (0.0-7.3) H 11/19/20 08:01 Eos % (Auto) 1.7 % (0.0-4.3) 11/19/20 08:01 Baso % (Auto) 0.3 % (0.0-1.8) 11/19/20 08:01 Lymph # (Auto) 1.1 K/mm3 (1.2-5.4) L 11/19/20 08:01 [place] # (Auto) 0.7 K/mm3 (0.0-0.8) 11/19/20 08:01 Eos # (Auto) 0.1 K/mm3 (0.0-0.4) 11/19/20 08:01 Baso # (Auto) 0.0 K/mm3 (0.0-0.1) 11/19/20 08:01 Seg Neutrophils % 76.8 % (40.0-70.0) H 11/19/20 08:01 Seg Neutrophils # 6.7 K/mm3 (1.8-7.7) 11/19/20 08:01 PT 13.4 Sec. (12.2-14.9) 11/19/20 08:01 INR 1.04 (0.87-1.13) 11/19/20 08:01 APTT 30.9 Sec. (24.2-36.6) 11/19/20 08:01 D-Dimer 187.40 ng/mlDDU (0-234) 11/19/20 08:01 Sodium 141 mmol/L (137-145) 11/19/20 08:01 Potassium 3.9 mmol/L (3.6-5.0) 11/19/20 08:01 Chloride 102.1 mmol/L (98-107) 11/19/20 08:01 Carbon Dioxide 34 mmol/L (22-30) H 11/19/20 08:01 Anion Gap 9 mmol/L 11/19/20 08:01 BUN 16 mg/dL (9-20) 11/19/20 08:01 Creatinine 1.0 mg/dL (0.8-1.3) 11/19/20 08:01 Estimated GFR > 60 ml/min 11/19/20 08:01 BUN/Creatinine Ratio 16 % 11/19/20 08:01 Glucose 99 mg/dL (75-100) 11/19/20 08:01 Calcium 9.3 mg/dL (8.4-10.2) 11/19/20 08:01 Total Bilirubin 0.50 mg/dL (0.1-1.2) 11/19/20 08:01 Direct Bilirubin < 0.2 mg/dL (0-0.2) 11/19/20 08:01 Indirect Bilirubin 0.3 mg/dL 11/19/20 08:01 AST 14 units/L (5-40) 11/19/20 08:01 ALT 12 units/L (7-56) 11/19/20 08:01 Alkaline Phosphatase 110 units/L (35-129) 11/19/20 08:01 Troponin T < 0.010 ng/mL (0.00-0.029) 11/19/20 18:01 NT-Pro-B Natriuret Pep 683.1 pg/mL (0-450) H 11/19/20 08:01 Total Protein 7.2 g/dL (6.3-8.2) 11/19/20 08:01 Albumin 4.3 g/dL (3.9-5) 11/19/20 08:01 Albumin/Globulin Ratio 1.5 % 11/19/20 08:01 Urine Color Yellow (Yellow) 11/19/20 Unknown Urine Turbidity Clear (Clear) 11/19/20 Unknown Urine pH 6.0 (5.0-7.0) 11/19/20 Unknown Ur Specific [place] 1.024 (1.003-1.030) 11/19/20 Unknown Urine Protein <15 mg/dl mg/dL (Negative) 11/19/20 Unknown Urine Glucose (UA) Neg mg/dL (Negative) 11/19/20 Unknown Urine Ketones Neg mg/dL (Negative) 11/19/20 Unknown Urine Blood Neg (Negative) 11/19/20 Unknown Urine Nitrite Neg (Negative) 11/19/20 Unknown Urine Bilirubin Neg (Negative) 11/19/20 Unknown Urine Urobilinogen < 2.0 mg/dL (<2.0) 11/19/20 Unknown Ur Leukocyte Esterase Neg (Negative) 11/19/20 Unknown Urine WBC (Auto) 1.0 /HPF (0.0-6.0) 11/19/20 Unknown Urine RBC (Auto) 1.0 /HPF (0.0-6.0) 11/19/20 Unknown Urine Mucus 1+ /HPF 11/19/20 Unknown Urine Opiates Screen Negative 11/19/20 Unknown Urine Methadone Screen Negative 11/19/20 Unknown Ur Barbiturates Screen Negative 11/19/20 Unknown Ur Phencyclidine Scrn Negative 11/19/20 Unknown Ur Amphetamines Screen Negative 11/19/20 Unknown U Benzodiazepines Scrn Negative 11/19/20 Unknown Urine Cocaine Screen Negative 11/19/20 Unknown U Marijuana (THC) Screen Presumptive positive 11/19/20 Unknown Drugs of Abuse Note Disclamer 11/19/20 Unknown - Diagnostic Impressions Diagnostic Impressions: Echocardiogram 11/19/20 10:39 Transthoracic Echocardiogram Indication: H/o CHF/ICD/Chest pain BP: 93/42 HR: 105 Conclusions *The estimated ejection fraction is 30-35%. *Unable to evaluate diastolic function *The right ventricular global systolic function is mildly reduced. *A pacemaker wire is visualized in the right ventricle. *The right atrium is moderate to severely dilated. *A pacemaker wire is visualized in the right atrium. Findings Left Ventricle: The left ventricular chamber size is mildly dilated. There is no left ventricular hypertrophy. There is global hypokinesis of the left ventricle with minor regional variation. Global left ventricular systolic function is moderate to severely decreased. The estimated ejection fraction is 30-35%. Left Atrium: The left atrium is normal in size with no visual thrombus identified. Right Ventricle: The right ventricular chamber size and systolic function are within normal limits. The right ventricular global systolic function is mildly reduced. A pacemaker wire is visualized in the right ventricle. Right Atrium: The right atrium is moderate to severely dilated. A pacemaker wire is visualized in the right atrium. Aortic Valve: The aortic valve is trileaflet. The leaflets are thin with normal excursion. There is no aortic stenosis or regurgitation present. Mitral Valve: The mitral valve appears normal in structure and function. There is mild mitral regurgitation. Tricuspid Valve: There is mild tricuspid regurgitation. Pulmonic Valve: The pulmonic valve is not well visualized. Pericardium: The pericardium appears normal. Measurements Chambers 2D Name Value Normal Range IVSd (2D) 0.77 cm (0.6 - 1.1) LVPWd (2D) 1 cm (0.6 - 1.1) LVIDd (2D) 5.01 cm (3.7 - 5.6) LVIDs (2D) 3.9 cm (2 - 3.8) LV FS (2D) 22 % - EF Teichholz (2D) 44.26 % - Ao root diameter (2D) 3.37 cm (2 - 3.7) Volumes/Mass Name Value Normal Range LA ESV SP 4CH (A/L) 39.38 ml - LA ESV SP 2CH (A/L) 38.29 ml - LA ESV BP (A/L) 41.89 ml - LA ESV BP (A/L) index 22.4 ml/m2 - LA ESV SP 4CH (MOD) 33.68 ml - LA ESV SP 2CH (MOD) 37.4 ml - LA ESV BP (MOD) 38.21 ml - LA ESV BP (MOD) index 20.43 ml/m2 - Diastolic/Systolic Function Name Value Normal Range MV E-wave Vmax 0.77 m/sec - MV deceleration time 100.88 msec - MV A-wave Vmax 0.86 m/sec - MV E:A ratio 0.89 ratio - Aortic Valve Name Value Normal Range AV Vmax 1.29 m/sec - AV VTI 20.89 cm - AV peak gradient 7 mmHg - AV mean gradient 3.4 mmHg - LVOT diameter 2.27 cm - LVOT Vmax 0.81 m/sec - LVOT VTI 15.22 cm - LVOT peak gradient 2.64 mmHg - LVOT mean gradient 1.5 mmHg - SV LVOT 61.54 ml - NUVIA (continuity Vmax) 2.53 cm2 - NUVIA (continuity VTI) 2.95 cm2 - Ascending Ao 3.59 cm - Tricuspid Valve Name Value Normal Range TR Vmax 1.96 m/sec - TR peak gradient 15 mmHg - RAP 3 mmHg - RVSP 18 mmHg - IVC diameter 1.78 cm (1.2 - 2.3) Pulmonic Valve/Qp:Qs Name Value Normal Range PV Vmax 1.41 m/sec - PV peak gradient 7.96 mmHg - NM end-diastolic Vmax 0.41 m/sec - PV acceleration time 152.24 msec - Brenner/IV: Voiding Method Toilet IV Catheter Type [Right Wrist] Peripheral IV Active Medications - Current Medications Current Medications: Generic Name Dose Route Start Last Admin Trade Name Freq PRN Reason Stop Dose Admin Acetaminophen 650 mg 11/19/20 14:05 Acetaminophen 325 Mg Tab PO Q6H PRN Pain, Mild (1-3) Amiodarone HCl 200 mg 11/20/20 11:00 11/20/20 12:17 Amiodarone 200 Mg Tab PO 200 mg QDAY ARLETH Administration Apixaban 5 mg 11/19/20 22:00 11/20/20 09:47 Apixaban 5 Mg Tab PO 5 mg Q12HR ARLETH Administration Protocol Aspirin 81 mg 11/20/20 10:00 11/20/20 09:46 Aspirin Ec 81 Mg Tab PO 81 mg DAILY ARLETH Administration Diltiazem HCl 180 mg 11/20/20 11:00 11/20/20 12:18 Diltiazem Cd 180 Mg Cap PO 180 mg QDAY ARLETH Administration Famotidine 20 mg 11/20/20 10:00 11/20/20 09:47 Famotidine 20 Mg Tab PO 20 mg QDAY [facility] Administration Lisinopril 2.5 mg 11/20/20 14:00 11/20/20 15:27 Lisinopril 5 Mg Tab PO 2.5 mg QDAY ARLETH Administration Morphine Sulfate 2 mg 11/19/20 10:37 11/19/20 22:13 Morphine 2 Mg/1 Ml Inj IV 2 mg Q4H PRN Administration Pain, Moderate (4-6) Nitroglycerin 0.4 mg 11/19/20 10:37 Nitroglycerin 0.4 Mg Tab Subl SL .Q5MIN PRN Chest Pain Spironolactone 25 mg 11/20/20 14:00 11/20/20 15:28 Spironolactone 25 Mg Tab PO 25 mg QDAY ARLETH Administration
[2020-11-21] MEDS: LISINOPRIL 5 MG TAB PO SCH (09:09)
[2020-11-21] MEDS: APIXABAN 5 MG TAB PO SCH (09:09)
[2020-11-21] MEDS: FAMOTIDINE 20 MG TAB PO SCH (09:09)
[2020-11-21] MEDS: AMIODARONE 200 MG TAB PO SCH (09:09)
[2020-11-21] MEDS: SPIRONOLACTONE 25 MG TAB PO SCH (09:10)
[2020-11-21] MEDS: dilTIAZem CD 180 MG CAP PO SCH (09:10)
[2020-11-21] MEDS: ASPIRIN EC 81 MG TAB PO SCH (09:10)
[2020-11-21] MEDS: MORPHINE 2 MG/1 ML INJ IV PRN (09:21)
--- NOTE | 2020-11-21 17:38 | Progress Note ---
Assessment and Plan Assessment and Plan Assessment and plan: --Atrial fibrillation with rapid ventricular rate; Now rate controlled, transition to p.o. amiodarone and Cardizem Cardiology evaluation and recommendations noted and appreciated Continue anticoagulation with Eliquis --Atypical chest pain; symptoms resolved echocardiogram, for LV function ejection fraction --Acute on chronic systolic congestive heart failure EF during this admission is 30 to 35% Input output monitoring, on Cardizem ,spironolactone, lisinopril no beta-blockers due to bradycardia Closely monitor and adjust, low-sodium diet fluid restriction Patient has history of congestive heart failure from childhood-[EF 40 to 45% in 2017] --Medical noncompliance; Wrongly advised the patient to comply with medications diet And follow-up doctors visits --Substance abuse/marijuana Advised to quit recreational drug use --DVT prophylaxis; on Eliquis Closely monitor the patient and adjust the management as needed Plan of care reviewed with the patient and his nurse Subjective Date of service: 11/21/20 Principal diagnosis: A. fib with RVR Interval history: Brief history; 25-year-old male patient with significant past medical history of congenital heart disease status post ASD and PDA repair at the age of 3 and history of dural chamber pacemaker placement was admitted through emergency room with paroxysmal atrial flutter fibrillation with rapid ventricular rate Patient received Cardizem and amiodarone IV transition to p.o. today with rate controlled in sinus rhythm Patient is placed on Eliquis, had some vague chest pain and shortness of breath and dizziness which significantly improved. Patient is evaluated by cardiology medications optimized. Possible discharge in 1 to 2 days if stable 11/20/2020; patient is in sinus rhythm with mild bradycardia Continue current cardiac medications, input output monitoring Symptoms significantly improved, possible discharge in 1 to 2 days if stable Cardiology evaluation recommendations noted and appreciated Possible discharge in 1 to 2 days if stable Patient counseled compliance with medications diet and follow-up visits 11/21/20 Symptomatically better Objective - Constitutional Vitals: Vital Signs - 12hr 11/21/20 11/21/20 11/21/20 07:39 08:00 10:45 Temperature 98.1 F 98.1 F Pulse Rate 54 L 50 L 51 L Respiratory 18 18 Rate Blood Pressure 94/43 87/45 O2 Sat by Pulse 97 98 Oximetry General appearance: Present: no acute distress, well-nourished - EENT Eyes: PERRL, EOM intact ENT: hearing intact, clear oral mucosa Ears: bilateral: normal - Neck Neck: supple, normal ROM - Respiratory Respiratory effort: normal Respiratory: bilateral: CTA - Breasts Breasts: normal - Cardiovascular Heart rate: 76 Rhythm: irregularly irregular Heart Sounds: Present: S1 & S2. Absent: gallop, rub Extremities: pulses intact, No edema, normal color, Full ROM - Gastrointestinal General gastrointestinal: Present: soft, non-tender, non-distended, normal bowel sounds - Genitourinary Male genitourinary: normal - Integumentary Integumentary: clear, warm, dry - Musculoskeletal Musculoskeletal: 1, strength equal bilaterally - Neurologic Neurologic: moves all extremities - Psychiatric Psychiatric: memory intact, appropriate mood/affect, intact judgment & insight - Labs CBC & Chem 7: 11/19/20 08:01 11/19/20 08:01 HEART Score - HEART Score Troponin: Troponin T < 0.010 ng/mL (0.00-0.029) 11/19/20 18:01
[2020-11-21 17:41] VITALS: BP 107/64
--- NOTE | 2020-11-21 17:41 | Discharge Summary ---
Providers - Providers Date of Admission: 11/19/20 09:35 Date of discharge: 11/21/20 Attending physician: FERHCO ROSAS 11/19/20 10:42 Consult to Physician [CONS] Routine Comment: Consulting Provider: BOB KRUSE Physician Instructions: Reason For Exam: A flutter with rapid ventricular rate/CHF Primary care physician: FIRER [facility]ER Hospitalization Condition: Stable Hospital course: Subjective Date of service: 11/21/20 Principal diagnosis: A. fib with RVR Interval history: Brief history; 25-year-old male patient with significant past medical history of congenital heart disease status post ASD and PDA repair at the age of 3 and history of dural chamber pacemaker placement was admitted through emergency room with paroxysmal atrial flutter fibrillation with rapid ventricular rate Patient received Cardizem and amiodarone IV transition to p.o. today with rate controlled in sinus rhythm Patient is placed on Eliquis, had some vague chest pain and shortness of breath and dizziness which significantly improved. Patient is evaluated by cardiology medications optimized. Possible discharge in 1 to 2 days if stable 11/20/2020; patient is in sinus rhythm with mild bradycardia Continue current cardiac medications, input output monitoring Symptoms significantly improved, possible discharge in 1 to 2 days if stable Cardiology evaluation recommendations noted and appreciated Possible discharge in 1 to 2 days if stable Patient counseled compliance with medications diet and follow-up visits 11/21/20 Symptomatically better Assessment and Plan --Atrial fibrillation with rapid ventricular rate; Now rate controlled, transition to p.o. amiodarone and Cardizem Cardiology evaluation and recommendations noted and appreciated Continue anticoagulation with Eliquis --Atypical chest pain; symptoms resolved echocardiogram, for LV function ejection fraction --Acute on chronic systolic congestive heart failure EF during this admission is 30 to 35% Input output monitoring, on Cardizem ,spironolactone, lisinopril no beta-blockers due to bradycardia Closely monitor and adjust, low-sodium diet fluid restriction Patient has history of congestive heart failure from childhood-[EF 40 to 45% in 2017] --Medical noncompliance; Wrongly advised the patient to comply with medications diet And follow-up doctors visits --Substance abuse/marijuana Advised to quit recreational drug use --DVT prophylaxis; on Eliquis Closely monitor the patient and adjust the management as needed Plan of care reviewed with the patient and his nurse Disposition: -01 TO HOME OR SELFCARE Core Measure Documentation - Palliative Care Palliative Care/ Comfort Measures: Not Applicable - Core Measures Any of the following diagnoses?: none Exam - Constitutional Vitals: Temp Pulse Resp BP Pulse Ox 98.1 F 51 L 18 87/45 98 11/21/20 10:45 11/21/20 10:45 11/21/20 10:45 11/21/20 10:45 11/21/20 10:45 General appearance: Present: no acute distress, well-nourished - EENT Eyes: Present: PERRL ENT: hearing intact, clear oral mucosa - Neck Neck: Present: supple, normal ROM - Respiratory Respiratory effort: normal Respiratory: bilateral: CTA - Cardiovascular Heart rate: 78 Rhythm: regular Heart Sounds: Present: S1 & S2. Absent: rub, click - Extremities Extremities: pulses symmetrical, No edema Peripheral Pulses: within normal limits - Abdominal General gastrointestinal: Present: soft, non-tender, non-distended, normal bowel sounds Male genitourinary: Present: normal - Integumentary Integumentary: Present: clear, warm, dry - Musculoskeletal Musculoskeletal: gait normal, strength equal bilaterally - Psychiatric Psychiatric: appropriate mood/affect, intact judgment & insight - Neurologic Neurologic: CNII-XII intact, moves all extremities - Allied Health Allied health notes reviewed: nursing, case management Plan Activity: no restrictions Diet: low salt Follow up with: PRIMARY CAREMD [Primary Care Provider] - 3-5 Days
== END 2020-11-21 19:30 | disposition home or self-care (01) | DRG 308 ==
LOC: ED 07:23 → CC1 09:35 → 4A 22:58
PROVIDERS: ADMIT Internal Medicine; ATTEND Internal Medicine
DX: I48.0 Paroxysmal atrial fibrillation (principal); I50.23 Acute on chronic systolic (congestive) heart failure; I49.5 Sick sinus syndrome; R07.89 Other chest pain; F12.10 Cannabis abuse, uncomplicated; R07.9 Chest pain, unspecified; Z91.19 Patient's noncompliance with other medical treatment and regimen; Z86.711 Personal history of pulmonary embolism; Z95.0 Presence of cardiac pacemaker
CPT/HCPCS: 36415; 71046; 80048; 80076; 80307; 81001; 83880; 84484; 85025; 85379; 85610; 85730; 93005; 93306; 96365; 96375; 99406; G0378; J0282; J2270; J7060